=== PATIENT | male | born 1975 | race Hispanic/Latino ===

== ENCOUNTER 2024-04-03 20:05 | Inpatient (IN) | payer SELFPAY ==
[~2024-04-03] VITALS: Ht 165.1 cm; Wt 105.9 kg
--- NOTE | 2024-04-03 21:20 | ERN ---
ED Note History of Present Illness Stated Complaint: LOWER PELVIC PAIN Chief Complaint: Abdominal Pain Time Seen by MD: 20:13 Time Seen by Midlevel: 20:13 Dictation: The patient is a 48-year-old male with no past medical history who presents to the emergency department with complaints of right side abdominal pain onset a week ago. Patient denies any fevers, nausea vomiting or diarrhea, constipation. Reports normal bowel movements. Patient is concerned with abdominal distention. Allergies: Coded Allergies: No Known Drug Allergies (Unverified Allergy, Unknown, 04/03/24) Past Medical History RN Note Reviewed/Agreed w/PFSH: Yes Review of System Dictation Constitutional: Negative for fever,chills, and weight loss Eyes: Negative for injury, pain,redness, and discharge ENT: Negative for injury,pain or swelling Cardiovascular: Negative for chest pain, palpitations, and edema Respiratory: Negative for shortness of breath, cough, and wheezing, Abdomen/GI: Negative for nausea, vomiting, diarrhea, and constipation positive for abdominal pain, Back: Negative for injury and pain : Negative for injury, bleeding and discharge MS/Extremity: Negative for injury and deformity Skin: Negative for rash, and discoloration Neuro: Negative for headache, weakness, numbness, tingling, and seizure Psych: Negative for suicide ideation, homicidal ideation, and hallucinations Initial Vital Sign VS Vital Signs Date Time Temp Pulse Resp B/P (MAP) Pulse Ox O2 Delivery O2 Flow Rate FiO2 04/03/24 21:19 98.4 85 18 130/88 98 0 04/03/24 22:35 Room Air* 21 Physical Exam Dictation Vital Signs reviewed General Appearance: Alert, oriented x 3, no acute distress, well developed, nourished. Head and Face: non-traumatic. Eyes: PERRL, pink conjunctivas, eyelid no trauma, anterior chamber with arcus senilis. Ears: Pinnas intact and no signs of trauma or erythema ear canals clear and no discharge TM no erythema Nose: No discharge, no bleeding. Oropharynx: Mouth normal, tongue pink. pharynx clear,no erythema, tonsils no exudates, no abscesses noted, mucous membrane moist Neck: Supple, non-tender, no thyromegaly, no masses, no JVD, no bruits Breast:Deferred Chest:No tenderness, no crepitus, no paradoxical movement, no retractions Lungs:Clear, well-ventilated, symmetric, no rales, no wheezing, no rhonchi, no stridor, good breath sounds bilaterally Heart: Regular rate, regular rhythm, no murmur, no gallops Vascular: no peripheral edema, Abdomen: Soft, positive bowel sounds, nondistended, no guarding, right lower abd tender, no rebound, no masses no hepatomegaly, no splenomegaly, no Azevedo's sign, no hernias. Rectal: Deferred Genital: Deferred Neurological: Normal speech, motor function intact, sensory function intact Musculoskeletal: Neck nontender, full range of motion, back nontender, full range of motion, Extremities: nontender, full range of motion Skin: Color pink, dry, no turgor, no rash, no lacerations, no abrasions, no contusions. Lymphatic: Deferred Results (Laboratory/Radiology) Laboratory/Radiology Laboratory Tests Test 04/03/24 21:52 04/03/24 21:53 Urine Color YELLOW (YELLOW) Urine Appearance CLEAR (CLEAR) Urine pH 6.0 (5.0-8.0) Urine Specific [place] 1.019 (1.001-1.031) Urine Protein 20 mg/dL (NEGATIVE) H Urine Glucose (UA) NEGATIVE mg/dL (NEGATIVE) Urine Ketones NEGATIVE mg/dL (NEGATIVE) Urine Occult Blood NEGATIVE (NEGATIVE) Urine Nitrate NEGATIVE (NEGATIVE) Urine Bilirubin NEGATIVE mg/dL (NEGATIVE) Urine Urobilinogen 0.2 mg/dL (0.2-1.0) Urine Leukocyte Esterase NEGATIVE Diony/uL Urine RBC 0-1 /HPF (0-1) Urine WBC 2-5 /HPF (0-1) H Urine Bacteria None /HPF (None Seen) Urine Opiates Screen NEGATIVE (NEGATIVE) Urine Barbiturates Screen NEGATIVE (NEGATIVE) Urine Phencyclidine Screen NEGATIVE (NEGATIVE) Urine Amphetamines Screen NEGATIVE (NEGATIVE) Urine Benzodiazepines Screen NEGATIVE (NEGATIVE) Urine Cocaine Screen NEGATIVE (NEGATIVE) Urine Marijuana (THC) Screen NEGATIVE (NEGATIVE) White Blood Count 14.4 K/uL (4.8-10.8) H Red Blood Count 4.65 MIL/uL (4.50-6.20) Hemoglobin 14.6 g/dL (14.0-18.0) Hematocrit 42.3 % (42-54) Mean Corpuscular Volume 91.0 fL (79-99) Mean Corpuscular Hemoglobin 31.4 pg (27.0-33.0) Mean Corpuscular Hemoglobin Concent 34.5 g/dL (32.0-36.0) Red Cell Distribution Width 12.2 % (11.0-15.5) Platelet Count 333 K/uL (130-400) Mean Platelet Volume 9.4 fL (7.5-10.5) Immature Granulocyte % (Auto) 0.4 % (0-1) Neutrophils (%) (Auto) 71.1 % (40.0-77.0) Lymphocytes (%) (Auto) 19.2 % (21.0-51.0) L Monocytes (%) (Auto) 7.7 % (3.0-13.0) Eosinophils (%) (Auto) 1.3 % (0.0-8.0) Basophils (%) (Auto) 0.3 % (0.0-5.0) Neutrophils # (Auto) 10.2 K/uL (1.8-7.7) H Lymphocytes # (Auto) 2.8 K/uL (1.0-4.8) Monocytes # (Auto) 1.1 K/uL (0.1-1.0) H Eosinophils # (Auto) 0.19 K/uL (0.00-0.70) Basophils # (Auto) 0.04 K/uL (0.00-0.20) Absolute Immature Granulocyte (auto 0.06 K/uL (0-1) Nucleated Red Blood Cells 0.0 % (0.0-0.19) Sodium Level 136 mmol/L (136-145) Potassium Level 4.2 mmol/L (3.5-5.1) Chloride Level 100 mmol/L (101-111) L Carbon Dioxide Level 31 mmol/L (21-32) Blood Urea Nitrogen 11 mg/dL (7-18) Creatinine 1.2 mg/dL (0.5-1.3) Glomerular Filtration Rate Calc 74 mL/min (>90) Random Glucose 100 mg/dL (70-105) Total Calcium 8.9 mg/dL (8.5-10.1) Total Bilirubin 0.9 mg/dL (0.2-1.0) Direct Bilirubin 0.3 mg/dL (0.0-0.3) Aspartate Amino Transf (AST/SGOT) 25 U/L (10-37) Alanine Aminotransferase (ALT/SGPT) 60 U/L (12-78) Alkaline Phosphatase 158 U/L (50-136) H Total Creatine Kinase 99 U/L (21-232) Troponin I High Sensitivity < 4 ng/L (4-75) L Total Protein 8.1 g/dL (6.0-8.3) Albumin 3.4 g/dL (3.5-5.0) L Lipase 45 U/L (16-77) REASON: right Abdominal Pain ORDERING PHYSICIAN: KHUSHI QUACH PROCEDURE: ABD PEL W - CT ABDOMEN/PELVIS W/CONTRAST CT ABDOMEN/PELVIS W/CONTRAST HISTORY: Right abdominal pain COMPARISON: None TECHNIQUE: Multiple sequential axial images of the abdomen and pelvis were obtained from the dome of the diaphragm through symphysis pubis. Patient was not given contrast through intravenous route. Oral contrast was not given. FINDINGS: No pleural effusion is seen bilaterally. There is no evidence of parenchymal disease or pulmonary nodule of the visualized lower lungs. Degenerative changes of the thoracolumbar spine are present. The heart is not enlarged. The liver is borderline enlarged measuring 16 cm. There is right posterior renal cyst measuring 4.4 cm. The liver, spleen, adrenal glands and pancreas are unremarkable. There is no evidence of hydronephrosis bilaterally. No evidence of renal stone is seen. Fecal material is seen in the colon. There are normal size retroperitoneal and mesenteric lymph nodes. No ascites is seen. There is right lower abdominal mesenteric fat stranding. There is complex cystic structure measuring 4.1 cm in the right lower abdomen. Findings may be related to acute appendicitis with abscess. Appendix is dilated measuring 12 mm. Pelvic sidewalls are symmetric bilaterally. Bladder is moderately distended without wall thickening. IMPRESSION: 1. There is right lower abdominal mesenteric fat stranding. There is complex cystic structure measuring 4.1 cm in the right lower abdomen. Findings may be related to acute appendicitis with abscess. Appendix is dilated measuring [address] was performed with one or more following dose reduction techniques: automated exposure control, adjustment of the mA and kv according to patient's size, or use of a iterative reconstruction technique. Labs Reviewed?: Yes ED Course ED Course Orders Procedure Category Date Status Time Cbc With Differential LAB 04/03/24 Complete 20:20 Urinalysis Profile LAB 04/03/24 Complete 20:20 0.9%Nacl 1000ml (Ns PHA 04/03/24 Complete 1000ml) 20:30 Lipase LAB 04/03/24 Complete 20:20 Basic Metabolic Panel LAB 04/03/24 Complete 20:20 Hepatic Function Panel LAB 04/03/24 Complete 20:20 Ketorolac PHA 04/03/24 Complete Tromethamine 30mg/Ml 20:30 Troponin I High LAB 04/03/24 Complete Sensitivity 20:20 12 Lead Ekg Tracing- EKG 04/03/24 Logged Technical 20:20 Creatine Kinase, Total LAB 04/03/24 Complete 20:20 Drug Screen Urine LAB 04/03/24 Complete 22:39 Ct Abdomen/Pelvis CT 04/03/24 Resulted W/Contrast 22:39 Iohexol (Omnipaque) PHA 04/03/24 Complete 22:59 Zosyn 3.375gm+Ns 50ml PHA 04/04/24 Complete (Zosyn 3.375gm+Ns 00:00 Nothing By Mouth DIET 04/04/24 Transmitted Breakfast Current Medications Medications (Trade) Dose Ordered Sig/Maynor Route PRN Reason Start Time Stop Time Status Last Admin Dose Admin Iohexol (Omnipaque) 75 ml STK-MED ONCE IV 04/03/24 22:59 04/03/24 22:59 DC Ketorolac Tromethamine (toRADol) 30 mg ONCE ONCE IVP 04/03/24 20:30 04/03/24 20:31 DC 04/03/24 23:20 Piperacillin Sod/ Tazobactam Sod (Zosyn 3.375gm+NS 50ml) 3.375 gm ONCE ONCE IV 04/04/24 00:00 04/04/24 00:02 DC 04/04/24 00:09 Sodium Chloride 1,000 ml @ 0 mls/hr ONCE ONCE IV 04/03/24 20:30 04/03/24 20:31 DC 04/03/24 23:20 Vital Signs Date Time Temp Pulse Resp B/P (MAP) Pulse Ox O2 Delivery O2 Flow Rate FiO2 04/03/24 22:35 98.4 85 18 130/85 98 Room Air* 0 21 04/03/24 21:19 98.4 85 18 130/88 98 0 Medical Decision Making MDM MDM: The patient is a 48-year-old male with no past medical history who presents to the emergency department with complaints of right side abdominal pain onset a week ago. Patient denies any fevers, nausea vomiting or diarrhea, constipation. Reports normal bowel movements. Patient is concerned with abdominal distention. CBC showed leukocytosis, no anemia, chemistry showed hypochloremia, normal renal function, negative troponin, negative lipase, urinalysis unremarkable. CT showed right lower abdominal mesenteric fat stranding. Cystic structure measuring 4.1 cm in the right lower abdomen which may relate to appendicitis with the abscess. The appendix is dilated at 12 mm. Spoke to general surgery who states to admit patient, start antibiotics, npo and she will consult tomorrow. Differential diagnosis: UTI, appendicitis, bowel obstruction, electrolyte imbalance Comorbidities: None Tests considered and not ordered secondary to shared decision making include: none Previous outside records reviewed: none Risk of complication and/or morbidity or mortality of patient management: The patient meets criteria for admission. Need for emergency major/minor surgery: No There are no social concerns with this patient. I independently interpreted the tests I ordered (labs, urinalysis, etc.). I discussed the case with the hospitalist for admission. Angelina who accepts admission I discussed the case with the following specialists: Historian: pateint. I independently interpreted imaging studies and EKGs that I ordered (US, CT, XR, EKG, etc.). External chart review: none. Medical management and examination interpretation discussions were had by me with other qualified healthcare professionals as indicated for the patient's care. DX & DISP Disposition: Inpatient Decision to Admit Date: Apr 04, 2024 Decision to Admit Time: 00:37 Departure Impression: Primary Impression: Acute appendicitis Additional Impressions: Appendix abscess, Leukocytosis, Abdominal pain Condition: Stable Referrals: NONE (PCP) I have reviewed the case, and I agree with, Diagnosis and Plan KHUSHI QUACH Apr 03, 2024 21:20
[2024-04-03 22:02] LABS: APPEARANCE,URINE CLEAR (CLEAR); BILIRUBIN,URINE NEGATIVE (NEGATIVE); COLOR,URINE YELLOW (YELLOW); GLUCOSE, URINE (UA) NEGATIVE (NEGATIVE); KETONES,URINE NEGATIVE (NEGATIVE); LEUKOCYTE ESTERASE ,URINE NEGATIVE Leu/uL (NEGATIVE); NITRATE,URINE NEGATIVE (NEGATIVE); OCCULT BLOOD,URINE NEGATIVE (NEGATIVE); PROTEIN,URINE 20 mg/dL (NEGATIVE); UROBILINOGEN,URINE 0.2 mg/dL (0.2-1.0)
[2024-04-03 22:04] LABS: ADD UA MICROSCOPIC YES
[2024-04-03 22:05] LABS: MUCUS,URINE RARE LPF (None Seen); RBC,URINE 0-1 /HPF (0-1)
[2024-04-03 22:18] LABS: BASOPHILS # (AUTO) 0.04 K/uL (0.00-0.20); BASOPHILS % (AUTO) 0.3 % (0.0-5.0); EOSINOPHILS # (AUTO) 0.19 K/uL (0.00-0.70); EOSINOPHILS % (AUTO) 1.3 % (0.0-8.0); HEMATOCRIT 42.3 % (42-54); IMMATURE GRANULOCYTE ABSOLUTE 0.06 K/uL (0-1); LYMPHOCYTES # (AUTO) 2.8 K/uL (1.0-4.8); LYMPHOCYTES % (AUTO) 19.2 % (21.0-51.0); MEAN CORPUSCULAR HEMOGLOBIN 31.4 pg (27.0-33.0); MEAN CORPUSCULAR HGB CONC 34.5 g/dL (32.0-36.0); MONOCYTES # (AUTO) 1.1 K/uL (0.1-1.0); MONOCYTES % (AUTO) 7.7 % (3.0-13.0); NEUTROPHILS # (AUTO) 10.2 K/uL (1.8-7.7); NEUTROPHILS % (AUTO) 71.1 % (40.0-77.0); PLATELET COUNT (AUTO) 333 K/uL (130-400); RED BLOOD CELL COUNT(AUTO) 4.65 MIL/uL (4.50-6.20); RED CELL DISTRIBUTION WIDTH 12.2 % (11.0-15.5); WHITE BLOOD COUNT (AUTO) 14.4 K/uL (4.8-10.8)
[2024-04-03 22:32] LABS: CREATININE 1.2 mg/dL (0.5-1.3); POTASSIUM 4.2 mmol/L (3.5-5.1)
[2024-04-03 22:36] LABS: ALBUMIN 3.4 g/dL (3.5-5.0); BILIRUBIN,DIRECT 0.3 mg/dL (0.0-0.3); BILIRUBIN,TOTAL 0.9 mg/dL (0.2-1.0); TOTAL PROTEIN, SERUM 8.1 g/dL (6.0-8.3)
[2024-04-03] MEDS ORDERED: IOHEXOL-350 75 ML VIAL IV ONE (22:59)
[2024-04-03 23:07] LABS: AMPHET/METH SCREEN,URINE NEGATIVE (NEGATIVE); BARBITURATE SCREEN, URINE NEGATIVE (NEGATIVE); BENZODIAZEPINES SCREEN,URINE NEGATIVE (NEGATIVE); CANNABINOID SCREEN,URINE NEGATIVE (NEGATIVE); COCAINE SCREEN,URINE NEGATIVE (NEGATIVE); OPIATE SCREEN,URINE NEGATIVE (NEGATIVE); PHENCYCLIDINE SCREEN,URINE NEGATIVE (NEGATIVE)
[2024-04-03] MEDS: 0.9%NACL 1000ML 1,000 ML IV ONE (23:20)
[2024-04-03] MEDS: ketOROlac 30MG VIAL (30MG/ML) IVP ONE (23:20)
--- NOTE | 2024-04-03 23:24 | HMCIMG ---
CT ABDOMEN/PELVIS W/CONTRAST HISTORY: Right abdominal pain COMPARISON: None TECHNIQUE: Multiple sequential axial images of the abdomen and pelvis were obtained from the dome of the diaphragm through symphysis pubis. Patient was not given contrast through intravenous route. Oral contrast was not given. FINDINGS: No pleural effusion is seen bilaterally. There is no evidence of parenchymal disease or pulmonary nodule of the visualized lower lungs. Degenerative changes of the thoracolumbar spine are present. The heart is not enlarged. The liver is borderline enlarged measuring 16 cm. There is right posterior renal cyst measuring 4.4 cm. The liver, spleen, adrenal glands and pancreas are unremarkable. There is no evidence of hydronephrosis bilaterally. No evidence of renal stone is seen. Fecal material is seen in the colon. There are normal size retroperitoneal and mesenteric lymph nodes. No ascites is seen. There is right lower abdominal mesenteric fat stranding. There is complex cystic structure measuring 4.1 cm in the right lower abdomen. Findings may be related to acute appendicitis with abscess. Appendix is dilated measuring 12 mm. Pelvic sidewalls are symmetric bilaterally. Bladder is moderately distended without wall thickening. IMPRESSION: 1. There is right lower abdominal mesenteric fat stranding. There is complex cystic structure measuring 4.1 cm in the right lower abdomen. Findings may be related to acute appendicitis with abscess. Appendix is dilated measuring [address] was performed with one or more following dose reduction techniques: automated exposure control, adjustment of the mA and kv according to patient's size, or use of a iterative reconstruction technique.
[2024-04-04] VITALS (8 sets, daily range): BP systolic 98–146; BP diastolic 53–92; PULSE 89–107; RESP 16–20; TEMP 97.9–100; O2SAT 98–99
[2024-04-04] MEDS: ZOSYN 3.375GM +NS 50ML IV ONE (00:09)
[2024-04-04] MEDS ORDERED: PoTASSium chloRIDE 20MEQ/100ML 100 ML IV PRN (03:30)
[2024-04-04] MEDS ORDERED: MAGNESIUM 2GM PREMIX 50ML 50 ML IV PRN (03:30)
[2024-04-04] MEDS: 0.9%NACL 1000ML 1,000 ML IV SCH (04:19)
[2024-04-04] MEDS: morPHINE 2 MG SYG IV PRN (04:47)
[2024-04-04] MEDS: ondanSETRON 4MG INJ IV PRN (04:47)
[2024-04-04 05:56] LABS: BASOPHILS # (AUTO) 0.03 K/uL (0.00-0.20); BASOPHILS % (AUTO) 0.2 % (0.0-5.0); EOSINOPHILS # (AUTO) 0.19 K/uL (0.00-0.70); EOSINOPHILS % (AUTO) 1.5 % (0.0-8.0); HEMATOCRIT 38.1 % (42-54); LYMPHOCYTES # (AUTO) 1.7 K/uL (1.0-4.8); LYMPHOCYTES % (AUTO) 13.3 % (21.0-51.0); MEAN CORPUSCULAR HEMOGLOBIN 31.4 pg (27.0-33.0); MEAN CORPUSCULAR HGB CONC 34.1 g/dL (32.0-36.0); MONOCYTES % (AUTO) 7.7 % (3.0-13.0); NEUTROPHILS # (AUTO) 9.7 K/uL (1.8-7.7); NEUTROPHILS % (AUTO) 76.5 % (40.0-77.0); PLATELET COUNT (AUTO) 304 K/uL (130-400); RED BLOOD CELL COUNT(AUTO) 4.14 MIL/uL (4.50-6.20); RED CELL DISTRIBUTION WIDTH 12.3 % (11.0-15.5); WHITE BLOOD COUNT (AUTO) 12.7 K/uL (4.8-10.8)
[2024-04-04 06:06] LABS: INR 0.94 (0.85-1.15); PROTHROMBIN TIME 10.6 SEC (9.6-11.6)
[2024-04-04 06:08] LABS: PARTIAL THROMBOPLASTIN TIME 29.1 SEC (26.3-35.5)
[2024-04-04 06:23] LABS: ALBUMIN 2.8 g/dL (3.5-5.0); BILIRUBIN,TOTAL 0.6 mg/dL (0.2-1.0); MAGNESIUM 2.4 mg/dL (1.80-2.40); POTASSIUM 4.2 mmol/L (3.5-5.1); TOTAL PROTEIN, SERUM 6.8 g/dL (6.0-8.3)
--- NOTE | 2024-04-04 06:42 | EKG ---
[facility] Test Date: 2024-04-03 Test Time: 21:31:11 Pat Name: JARRETT SQUIRES Department: [facility] Room: 401 1 Gender: M Equal Opportunity Representative: [id number] : 1975 Requested By: KHUSHI QUACH Order Number: [id number] Reading MD: Daniel Luna Measurements Intervals [place] Rate: 86 P: -7 NV: 135 QRS: -21 QRSD: 96 T: -28 QT: 354 QTc: 423 Interpretive Statements Sinus rhythm No previous ECG available for comparison Electronically Signed On 04-04-2024 14:58:46 CUSTOMER ASSISTANT by Daniel Luna Please click the below link to view image of tracing.
--- NOTE | 2024-04-04 07:17 | HP ---
[facility] Date of Service: Apr 04, 2024 Time of Service: 06:59 PCP: Self-referral HISTORY OF PRESENT ILLNESS: This is a 48-year-old male denies any medical and surgical history who presents to the ED complaints of on and off nonradiating right lower quadrant pain which started one week ago. Patient states he also noticed having abdominal distention the pain intensity has been increasing and getting worse today so he decided to come to the ED for evaluation. Patient reports normal bowel movement today. Seen and examined patient in the ER awake alert and oriented, appears uncomfortable complaining of abdominal pain 8/10 pain level. Patient denies fever, chills, nausea, vomiting and diarrhea. Latest vital signs temperature 99, heart rate 89, blood pressure 146/92 saturation 99% on room air. Labs WBC 14.4, hemoglobin 14.6, hematocrit 42.3, platelet count 333. Chloride 100 alkaline phosphatase 158 troponin less than four albumin 3.4 the rest of the chemistry result are normal. Urine toxicology negative. CT abdomen and pelvis with contrast result revealed there is right lower abdominal mesenteric fat stranding. There is complex cystic structure measuring 4.1 cm in the right lower abdomen. Findings may be related to acute appendicitis with abscess. Appendix is dilated measuring 12 mm. While in the ER patient received 1 L NS bolus, Toradol 30 mg IV and Zosyn IV. As per ER mid level general surgeon Dr. Encinas he will was consulted agreed to evaluate patient. We will admit patient for further medical management. REVIEW OF SYSTEMS CONSTITUTIONAL: Denies fevers, chills, or night sweats. No unintentional weight loss reported. NEUROLOGICAL: Denies headache, amaurosis fugax, motor weakness, sensory deficit, vertigo/spinning sensation, gait abnormalities, or tremors. ENT: No hearing loss, otalgia, otorrhea, rhinitis, rhinorrhea, hoarseness, or sore throat. CARDIOVASCULAR: Denies any exertional angina, dyspnea on exertion, orthopnea, paroxysmal nocturnal dyspnea, palpitations, life-threatening arrhythmias, claudication. PULMONARY: Denies any shortness of breath, cough, phlegm/sputum, hemoptysis, pleuritic chest pain. SLEEP: Denies morning headaches, daytime somnolence or napping. Denies difficulty falling asleep, staying asleep, waking from sleep. Denies knowledge of snoring. GASTROINTESTINAL: Positive right lower quadrant abdominal pain Denies any type of dysphagia to either liquids or solids. Denies nausea, vomiting, pyrosis, early satiety, diarrhea, constipation, or changes in stool consistency or caliber. Denies coffee-ground emesis, hematemesis, hematochezia, or melanotic stools. GENITOURINARY: Denies frequency, urgency, nocturia, hematuria or incontinence (Storage/Irritative symptoms.) Low urinary stream, straining to void, urinary intermittency or hesitancy, splitting of the voiding stream, terminal dribbling. ENDOCRINOLOGIC: Denies polyuria, polydipsia, polyphagia or heat/cold intolerances. HEMATOLOGIC: Denies thrombophilia/previous clots, or coagulopathy/bleeding disorders. ONCOLOGIC: Denies personal history of malignancy. DERMATOLOGIC: Denies rashes or pruritus. PSYCHIATRIC: Denies any suicidal or homicidal ideation. Denies hallucinations. PAST MEDICAL HISTORY: [Patient denies ] PAST SURGICAL HISTORY: [ Patient denies ] PAST SOCIAL HISTORY: [ Patient lives with . Patient denies alcohol tobacco and recreational drug use ] FAMILY HISTORY: [Diabetes ] Coded Allergies: No Known Drug Allergies (Unverified Allergy, Unknown, 04/03/24) PHYSICAL EXAM GENERAL APPEARANCE: The patient is awake, alert, and oriented, in no acute cardiopulmonary distress. NEUROLOGICAL: Cranial nerves II-XII grossly intact. Motor is 5/5 in bilateral upper and lower extremities proximal to distal. No sensory deficits. HEENT: Face is symmetric. Pupils are equal and reactive. Extraocular movements are intact. NECK: Supple. No JVD. No thyromegaly. No submental, submandibular, pre- /postauricular, occipital or supraclavicular lymphadenopathy. CHEST: Normal chest expansion. No Telemetry. LUNGS: Absence of any rales, rhonchi or any wheezing. CARDIOVASCULAR: Regular. S1 and S2 normal. No appreciable rubs, murmurs or g allops. ABDOMEN: Abdominal distention and right lower quadrant abdominal tenderness on light palpation .There is no rebound, voluntary guarding, or rigidity. : Deferred. No Krishna. EXTREMITIES: Non-edematous and not cyanotic. No clubbing. Good capillary refill. SKIN: No skin breakdown. Vital Sign (Last 24 Hours) 04/04/24 04:30 Temp 99.0 Pulse 89 Resp 20 B/P (MAP) 146/92 Pulse Ox 99 O2 Delivery Room Air* O2 Flow Rate 0 FiO2 21 LABS: Laboratory: Test 04/04/24 05:24 04/03/24 21:53 04/03/24 21:52 Range/Units White Blood Count 12.7 H 4.8-10.8 K/uL Red Blood Count 4.14 L 4.50-6.20 MIL/uL Hemoglobin 13.0 L 14.0-18.0 g/dL Hematocrit 38.1 L 42-54 % Mean Corpuscular Volume 92.0 79-99 fL Mean Corpuscular Hemoglobin 31.4 27.0-33.0 pg Mean Corpuscular Hemoglobin Concent 34.1 32.0-36.0 g/dL Red Cell Distribution Width 12.3 11.0-15.5 % Platelet Count 304 130-400 K/uL Mean Platelet Volume 9.4 7.5-10.5 fL Immature Granulocyte % (Auto) 0.8 0-1 % Neutrophils (%) (Auto) 76.5 40.0-77.0 % Lymphocytes (%) (Auto) 13.3 L 21.0-51.0 % Monocytes (%) (Auto) 7.7 3.0-13.0 % Eosinophils (%) (Auto) 1.5 0.0-8.0 % Basophils (%) (Auto) 0.2 0.0-5.0 % Neutrophils # (Auto) 9.7 H 1.8-7.7 K/uL Lymphocytes # (Auto) 1.7 1.0-4.8 K/uL Monocytes # (Auto) 1.0 0.1-1.0 K/uL Eosinophils # (Auto) 0.19 0.00-0.70 K/uL Basophils # (Auto) 0.03 0.00-0.20 K/uL Absolute Immature Granulocyte (auto 0.10 0-1 K/uL Nucleated Red Blood Cells 0.0 0.0-0.19 % Prothrombin Time 10.6 9.6-11.6 SEC Prothromb Time International Ratio 0.94 0.85-1.15 Activated Partial Thromboplast Time 29.1 26.3-35.5 SEC Sodium Level 138 136-145 mmol/L Potassium Level 4.2 3.5-5.1 mmol/L Chloride Level 104 101-111 mmol/L Carbon Dioxide Level 28 21-32 mmol/L Blood Urea Nitrogen 9 7-18 mg/dL Creatinine 1.0 0.5-1.3 mg/dL Glomerular Filtration Rate Calc 92 >90 mL/min Random Glucose 113 H 70-105 mg/dL Total Calcium 8.4 L 8.5-10.1 mg/dL Magnesium Level 2.40 1.80-2.40 mg/dL Total Bilirubin 0.6 # 0.2-1.0 mg/dL Aspartate Amino Transf (AST/SGOT) 21 10-37 U/L Alanine Aminotransferase (ALT/SGPT) 46 # 12-78 U/L Alkaline Phosphatase 135 50-136 U/L Total Protein 6.8 6.0-8.3 g/dL Albumin 2.8 L 3.5-5.0 g/dL Procalcitonin 0.08 0.05-0.5 ng/mL Direct Bilirubin 0.3 0.0-0.3 mg/dL Total Creatine Kinase 99 21-232 U/L Troponin I High Sensitivity < 4 L 4-75 ng/L Lipase 45 16-77 U/L Urine Color YELLOW YELLOW Urine Appearance CLEAR CLEAR Urine pH 6.0 5.0-8.0 Urine Specific [place] 1.019 1.001-1.031 Urine Protein 20 H NEGATIVE mg/dL Urine Glucose (UA) NEGATIVE NEGATIVE mg/dL Urine Ketones NEGATIVE NEGATIVE mg/dL Urine Occult Blood NEGATIVE NEGATIVE Urine Nitrate NEGATIVE NEGATIVE Urine Bilirubin NEGATIVE NEGATIVE mg/dL Urine Urobilinogen 0.2 0.2-1.0 mg/dL Urine Leukocyte Esterase NEGATIVE NEGATIVE Diony/uL Urine RBC 0-1 0-1 /HPF Urine WBC 2-5 H 0-1 /HPF Urine Bacteria None None Seen /HPF Urine Opiates Screen NEGATIVE NEGATIVE Urine Barbiturates Screen NEGATIVE NEGATIVE Urine Phencyclidine Screen NEGATIVE NEGATIVE Urine Amphetamines Screen NEGATIVE NEGATIVE Urine Benzodiazepines Screen NEGATIVE NEGATIVE Urine Cocaine Screen NEGATIVE NEGATIVE Urine Marijuana (THC) Screen NEGATIVE NEGATIVE Current Medications Medications (Trade) Dose Ordered Sig/Maynor Route PRN Reason Start Time Stop Time Status Last Admin Dose Admin Magnesium Sulfate 50 ml @ 0 mls/hr PROTOCOL PRN IV OTHER [SEE ORDER COMMENTS] 04/04/24 03:30 05/04/24 03:29 Morphine Sulfate (morPHINE 2MG SYG) 2 mg Q4H PRN IV MODERATE PAIN (4-6) 04/04/24 03:30 04/11/24 03:29 04/04/24 04:47 2 MG Ondansetron HCl (zoFRAN 4MG INJ) 4 mg Q6H PRN IV NAUSEA/VOMITING 04/04/24 03:30 05/04/24 03:29 04/04/24 04:47 4 MG Piperacillin Sod/ Tazobactam Sod (Zosyn 3.375gm+NS 50ml) 3.375 gm Q8H IV 04/04/24 08:00 04/14/24 07:59 Potassium Chloride 100 ml @ 50 mls/hr AD PRN IV POTASSIUM PROTOCOL 04/04/24 03:30 05/04/24 03:29 Sodium Chloride 1,000 ml @ 100 mls/hr Q10H IV 04/04/24 03:30 05/04/24 03:29 04/04/24 04:19 100 MLS/HR DIAGNOSTICS / RADIOLOGY: [ ] ASSESSMENT: Acute appendicitis with abscess per CT POA Acute leukocytosis POA Moderate protein calorie malnutrition POA Morbid obesity POA PLAN: We will admit patient in medical surgical floor We will keep patient nothing by mouth We will start NS @ 100 ml / hr and re evaluate We will continue Zosyn IV Q 8 hours for empiric coverage We will start on Famotidine 20 mg IV bid for GI prophylaxis We will replace electrolytes as needed per protocol We will add prn medication for fever,pain, nausea and vomiting We will seek general surgery consultation We will request labs in am Further orders to follow depending on above results Case discussed with attending physician and came up with above treatment and plan of care. ADVANCED CARE PLANNING 1. Which of the following were discussed? Hospice Care - No Therapeutic options - Yes Advance Directives - No Other discussions - 2. Discussed with who? Patient and 3. Voluntary nature of this service was explained to the patient? Yes 4. Amount of time spent -19 min 5. Reviewed by Physician? (if this service was performed by NPP) Yes Patient seen and examined by me. Agree with note by SENIOR PACKAGING ENGINEER SEE ADDITIONAL ORDERS PER CHART DISCUSSED WITH NURSING STAFF SEGUNDO BALDWIN CENTRAL SUPPLY TECHNICIAN Apr 04, 2024 07:17
[2024-04-04 07:27] LABS: ERYTHROCYTE SEDIMENTATION RATE 70 MM/HR (0-15)
[2024-04-04] MEDS: FAMOTIDINE 20MG VIAL IV SCH (08:21)
[2024-04-04] MEDS: ZOSYN 3.375GM +NS 50ML IV SCH (08:21)
--- NOTE | 2024-04-04 12:47 | PN ---
[facility] PROGRESS NOTE Date of Service: Apr 04, 2024 Time of Service: 12:46 SUBJECTIVE: 04/04 patient is seen and examined at bedside, case discussed with the RN, no acute events overnight, patient currently NPO, getting IV antibiotics during my visit, getting good pain control with current medical management. Results of CT of the abdomen reviewed, findings of acute appendicitis with abscess. Surgical consultation and Infectious Disease consultation requested, we will follow input recommendation. REVIEW OF SYSTEMS CONSTITUTIONAL: Denies fevers, chills, or night sweats. No unintentional weight loss reported. NEUROLOGICAL: Denies headache, amaurosis fugax, motor weakness, sensory deficit, vertigo/spinning sensation, gait abnormalities, or tremors. ENT: No hearing loss, otalgia, otorrhea, rhinitis, rhinorrhea, hoarseness, or sore throat. CARDIOVASCULAR: Denies any exertional angina, dyspnea on exertion, orthopnea, paroxysmal nocturnal dyspnea, palpitations, life-threatening arrhythmias, claudication. PULMONARY: Denies any shortness of breath, cough, phlegm/sputum, hemoptysis, pleuritic chest pain. SLEEP: Denies morning headaches, daytime somnolence or napping. Denies difficulty falling asleep, staying asleep, waking from sleep. Denies knowledge of snoring. GASTROINTESTINAL: Positive right lower quadrant abdominal pain Denies any type of dysphagia to either liquids or solids. Denies nausea, vomiting, pyrosis, early satiety, diarrhea, constipation, or changes in stool consistency or caliber. Denies coffee-ground emesis, hematemesis, hematochezia, or melanotic stools. GENITOURINARY: Denies frequency, urgency, nocturia, hematuria or incontinence (Storage/Irritative symptoms.) Low urinary stream, straining to void, urinary intermittency or hesitancy, splitting of the voiding stream, terminal dribbling. ENDOCRINOLOGIC: Denies polyuria, polydipsia, polyphagia or heat/cold intolerances. HEMATOLOGIC: Denies thrombophilia/previous clots, or coagulopathy/bleeding disorders. ONCOLOGIC: Denies personal history of malignancy. DERMATOLOGIC: Denies rashes or pruritus. PSYCHIATRIC: Denies any suicidal or homicidal ideation. Denies hallucinations. PHYSICAL EXAM GENERAL APPEARANCE: The patient is awake, alert, and oriented, in no acute cardiopulmonary distress. NEUROLOGICAL: Cranial nerves II-XII grossly intact. Motor is 5/5 in bilateral upper and lower extremities proximal to distal. No sensory deficits. HEENT: Face is symmetric. Pupils are equal and reactive. Extraocular movements are intact. NECK: Supple. No JVD. No thyromegaly. No submental, submandibular, pre- /postauricular, occipital or supraclavicular lymphadenopathy. CHEST: Normal chest expansion. No Telemetry. LUNGS: Absence of any rales, rhonchi or any wheezing. CARDIOVASCULAR: Regular. S1 and S2 normal. No appreciable rubs, murmurs or gallops. ABDOMEN: Abdominal distention and right lower quadrant abdominal tenderness on light palpation .There is no rebound, voluntary guarding, or rigidity. : Deferred. No Krishna. EXTREMITIES: Non-edematous and not cyanotic. No clubbing. Good capillary refill. SKIN: No skin breakdown. Vital Signs (last 8hr) Date Time Temp Pulse Resp B/P (MAP) Pulse Ox O2 Delivery O2 Flow Rate FiO2 04/04/24 11:28 99.9 95 18 134/80 99 Room Air 04/04/24 10:02 99 Room Air* 0 21 04/04/24 08:02 97.9 92 18 126/67 99 Room Air LABS: Laboratory: Test 04/04/24 05:24 04/03/24 21:53 04/03/24 21:52 Range/Units White Blood Count 12.7 H 4.8-10.8 K/uL Red Blood Count 4.14 L 4.50-6.20 MIL/uL Hemoglobin 13.0 L 14.0-18.0 g/dL Hematocrit 38.1 L 42-54 % Mean Corpuscular Volume 92.0 79-99 fL Mean Corpuscular Hemoglobin 31.4 27.0-33.0 pg Mean Corpuscular Hemoglobin Concent 34.1 32.0-36.0 g/dL Red Cell Distribution Width 12.3 11.0-15.5 % Platelet Count 304 130-400 K/uL Mean Platelet Volume 9.4 7.5-10.5 fL Immature Granulocyte % (Auto) 0.8 0-1 % Neutrophils (%) (Auto) 76.5 40.0-77.0 % Lymphocytes (%) (Auto) 13.3 L 21.0-51.0 % Monocytes (%) (Auto) 7.7 3.0-13.0 % Eosinophils (%) (Auto) 1.5 0.0-8.0 % Basophils (%) (Auto) 0.2 0.0-5.0 % Neutrophils # (Auto) 9.7 H 1.8-7.7 K/uL Lymphocytes # (Auto) 1.7 1.0-4.8 K/uL Monocytes # (Auto) 1.0 0.1-1.0 K/uL Eosinophils # (Auto) 0.19 0.00-0.70 K/uL Basophils # (Auto) 0.03 0.00-0.20 K/uL Absolute Immature Granulocyte (auto 0.10 0-1 K/uL Nucleated Red Blood Cells 0.0 0.0-0.19 % Erythrocyte Sedimentation Rate 70 H 0-15 MM/HR Prothrombin Time 10.6 9.6-11.6 SEC Prothromb Time International Ratio 0.94 0.85-1.15 Activated Partial Thromboplast Time 29.1 26.3-35.5 SEC Sodium Level 138 136-145 mmol/L Potassium Level 4.2 3.5-5.1 mmol/L Chloride Level 104 101-111 mmol/L Carbon Dioxide Level 28 21-32 mmol/L Blood Urea Nitrogen 9 7-18 mg/dL Creatinine 1.0 0.5-1.3 mg/dL Glomerular Filtration Rate Calc 92 >90 mL/min Random Glucose 113 H 70-105 mg/dL Total Calcium 8.4 L 8.5-10.1 mg/dL Magnesium Level 2.40 1.80-2.40 mg/dL Total Bilirubin 0.6 # 0.2-1.0 mg/dL Aspartate Amino Transf (AST/SGOT) 21 10-37 U/L Alanine Aminotransferase (ALT/SGPT) 46 # 12-78 U/L Alkaline Phosphatase 135 50-136 U/L Total Protein 6.8 6.0-8.3 g/dL Albumin 2.8 L 3.5-5.0 g/dL Procalcitonin 0.08 0.05-0.5 ng/mL Direct Bilirubin 0.3 0.0-0.3 mg/dL Total Creatine Kinase 99 21-232 U/L Troponin I High Sensitivity < 4 L 4-75 ng/L Lipase 45 16-77 U/L Urine Color YELLOW YELLOW Urine Appearance CLEAR CLEAR Urine pH 6.0 5.0-8.0 Urine Specific [place] 1.019 1.001-1.031 Urine Protein 20 H NEGATIVE mg/dL Urine Glucose (UA) NEGATIVE NEGATIVE mg/dL Urine Ketones NEGATIVE NEGATIVE mg/dL Urine Occult Blood NEGATIVE NEGATIVE Urine Nitrate NEGATIVE NEGATIVE Urine Bilirubin NEGATIVE NEGATIVE mg/dL Urine Urobilinogen 0.2 0.2-1.0 mg/dL Urine Leukocyte Esterase NEGATIVE NEGATIVE Diony/uL Urine RBC 0-1 0-1 /HPF Urine WBC 2-5 H 0-1 /HPF Urine Bacteria None None Seen /HPF Urine Opiates Screen NEGATIVE NEGATIVE Urine Barbiturates Screen NEGATIVE NEGATIVE Urine Phencyclidine Screen NEGATIVE NEGATIVE Urine Amphetamines Screen NEGATIVE NEGATIVE Urine Benzodiazepines Screen NEGATIVE NEGATIVE Urine Cocaine Screen NEGATIVE NEGATIVE Urine Marijuana (THC) Screen NEGATIVE NEGATIVE Current Medications Medications (Trade) Dose Ordered Sig/Maynor Route PRN Reason Start Time Stop Time Status Last Admin Dose Admin Famotidine (Pepcid 20mg Vial) 20 mg BID IV 04/04/24 09:00 05/04/24 08:59 04/04/24 08:21 20 MG Magnesium Sulfate 50 ml @ 0 mls/hr PROTOCOL PRN IV OTHER [SEE ORDER COMMENTS] 04/04/24 03:30 05/04/24 03:29 Morphine Sulfate (morPHINE 2MG SYG) 2 mg Q4H PRN IV MODERATE PAIN (4-6) 04/04/24 03:30 04/11/24 03:29 04/04/24 11:08 2 MG Ondansetron HCl (zoFRAN 4MG INJ) 4 mg Q6H PRN IV NAUSEA/VOMITING 04/04/24 03:30 05/04/24 03:29 04/04/24 04:47 4 MG Piperacillin Sod/ Tazobactam Sod (Zosyn 3.375gm+NS 50ml) 3.375 gm Q8H IV 04/04/24 08:00 04/14/24 07:59 04/04/24 08:21 3.375 GM Potassium Chloride 100 ml @ 50 mls/hr AD PRN IV POTASSIUM PROTOCOL 04/04/24 03:30 05/04/24 03:29 Sodium Chloride 1,000 ml @ 100 mls/hr Q10H IV 04/04/24 03:30 05/04/24 03:29 2/16/25 08:22 100 MLS/HR DIAGNOSTICS / RADIOLOGY: [ ] ASSESSMENT: Acute appendicitis with abscess per CT POA Acute leukocytosis POA Moderate protein calorie malnutrition POA Morbid obesity POA PLAN: Remains admitted to the medical floor Continue patient nothing by mouth Continue NS @ 100 ml / hr and re evaluate Continue Zosyn IV Q 8 hours for empiric coverage Continue on Famotidine 20 mg IV bid for GI prophylaxis We will replace electrolytes as needed per protocol We will add prn medication for fever,pain, nausea and vomiting Surgical consultation requested, follow input and recommendation Infectious disease consultation requested, follow input recommendation We will request labs in am Further orders to follow depending on above results Case discussed with patient, all questions answered, agreed and understood the information provided. FAHEEM GROSS MD Apr 04, 2024 12:47
--- NOTE | 2024-04-04 13:08 | NUR ---
DC PLAN VISITED WITH PATIENT. PATIENT LIVES WITH PARENTS. PATIENT HAS NO SERVICES OR DME. FEELS SAFE TO RETURN HOME. Addendum: 04/04/24 at 1310 by CARLOS ALBERTO ESPOSITO RN CM Amended: Links added.
--- NOTE | 2024-04-04 21:45 | NUR ---
ROUNDS PATIENT AWAKE AND ALERT. VOICES ALL NEEDS. AT BEDSIDE. POC DISCUSSED. ALL QUESTIONS ANSWERED BY . Addendum: 04/04/24 at 2242 by PEPITO HUITRON RN RN Amended: Links added.
--- NOTE | 2024-04-04 22:42 | CONS ---
GENERAL SURGERY CONSULTATION NOTE Date/Time Patient Seen: April 04, 2024 Reason for Consultation: Acute perforated appendicitis with abscess History of Present Illness: This is a 48-year-old male who presented to the ER with a one week history of right lower quadrant abdominal pain. He has had associated fevers and chills. Imaging studies in the ER included a CT scan that confirmed the diagnosis of acute appendicitis with a associated 4 cm abscess. Right now he says his abdominal pain is improving. And that he is feeling better. Past Medical History: None Past Surgical History: None Family History: Noncontributory Social History: [Never] smoker. [Occasional] alcohol consumption. [Denies] illicit drug use Current Medications Medications (Trade) Dose Ordered Sig/Maynor Route Start Time Stop Time Status Last Admin Dose Admin Famotidine (Pepcid 20mg Vial) 20 mg BID IV 04/04/24 09:00 05/04/24 08:59 04/04/24 21:42 20 MG Piperacillin Sod/ Tazobactam Sod (Zosyn 3.375gm+NS 50ml) 3.375 gm Q8H IV 04/04/24 08:00 04/14/24 07:59 04/04/24 17:21 3.375 GM Sodium Chloride 1,000 ml @ 100 mls/hr Q10H IV 04/04/24 03:30 05/04/24 03:29 04/04/24 08:22 100 MLS/HR Review of Systems: CONST: [Positive for fevers and chills.] EYES: [No recent vision problems.] ENT: [No congestion, ear pain, or sore throat.] C/V: [No chest pain, palpitations, or edema.] RESP: [No cough, congestion, wheezing or shortness of breath.] GI: [Positive for abdominal pain] : [No incontinence or dysuria.] SKIN: [No rash.] NEURO: [No headache, focal numbness or weakness, dizziness, or seizures.] PSYCH: [No depression or anxiety.] HEME: [No abnormal bruising or bleeding.] LYMPH: [No swollen glands.] Physical Examination: GENERAL: [No acute distress.] HEAD: [Normal with no signs of head trauma.] EYES: [PERRLA, EOMI, conjunctiva and sclera normal.] ENT: [Hearing grossly intact, normal oropharynx.] NECK: [Supple without JVD. There is no tenderness, lymphadenopathy, or masses. No thyromegaly. Normal carotid upstrokes without bruits.] LUNGS: [Clear breath sounds bilaterally. There are right basilar rales one third of the way up the chest. No wheezes, or rhonchi.] HEART: [Normal rate and rhythm. Normal S1 and S2 without mumurs, gallop or rub.] VASC: [Peripheral pulses +2 bilaterally.] ABD: [Bowel sounds normal, soft, right lower quadrant abdominal tenderness. No diffuse peritonitis noted] : [Not examined] LYMPH: [No lymphadenopathy noted.] EXT: [No clubbing, cyanosis or edema.] SKIN: [No rashes or lesions noted.] NEURO: [Awake, alert, and oriented x3. No focal sensory or strength deficits noted.] Vital Signs (last 8hr) Date Time Temp Pulse Resp B/P (MAP) Pulse Ox O2 Delivery O2 Flow Rate FiO2 04/04/24 21:41 98 Room Air* 0 21 04/04/24 19:52 100.0 98 17 121/63 98 Room Air 04/04/24 16:31 99.1 106 16 98/53 99 Room Air Laboratory: [ ] Hematology Labs: Test 04/04/24 05:24 Range/Units White Blood Count 12.7 H 4.8-10.8 K/uL Red Blood Count 4.14 L 4.50-6.20 MIL/uL Hemoglobin 13.0 L 14.0-18.0 g/dL Hematocrit 38.1 L 42-54 % Mean Corpuscular Volume 92.0 79-99 fL Mean Corpuscular Hemoglobin 31.4 27.0-33.0 pg Mean Corpuscular Hemoglobin Concent 34.1 32.0-36.0 g/dL Red Cell Distribution Width 12.3 11.0-15.5 % Platelet Count 304 130-400 K/uL Mean Platelet Volume 9.4 7.5-10.5 fL Immature Granulocyte % (Auto) 0.8 0-1 % Neutrophils (%) (Auto) 76.5 40.0-77.0 % Lymphocytes (%) (Auto) 13.3 L 21.0-51.0 % Monocytes (%) (Auto) 7.7 3.0-13.0 % Eosinophils (%) (Auto) 1.5 0.0-8.0 % Basophils (%) (Auto) 0.2 0.0-5.0 % Neutrophils # (Auto) 9.7 H 1.8-7.7 K/uL Lymphocytes # (Auto) 1.7 1.0-4.8 K/uL Monocytes # (Auto) 1.0 0.1-1.0 K/uL Eosinophils # (Auto) 0.19 0.00-0.70 K/uL Basophils # (Auto) 0.03 0.00-0.20 K/uL Absolute Immature Granulocyte (auto 0.10 0-1 K/uL Nucleated Red Blood Cells 0.0 0.0-0.19 % Erythrocyte Sedimentation Rate 70 H 0-15 MM/HR Chemistry Labs: Test 04/04/24 05:24 04/03/24 21:53 Range/Units Sodium Level 138 136-145 mmol/L Potassium Level 4.2 3.5-5.1 mmol/L Chloride Level 104 101-111 mmol/L Carbon Dioxide Level 28 21-32 mmol/L Blood Urea Nitrogen 9 7-18 mg/dL Creatinine 1.0 0.5-1.3 mg/dL Glomerular Filtration Rate Calc 92 >90 mL/min Random Glucose 113 H 70-105 mg/dL Total Calcium 8.4 L 8.5-10.1 mg/dL Magnesium Level 2.40 1.80-2.40 mg/dL Total Bilirubin 0.6 # 0.2-1.0 mg/dL Aspartate Amino Transf (AST/SGOT) 21 10-37 U/L Alanine Aminotransferase (ALT/SGPT) 46 # 12-78 U/L Alkaline Phosphatase 135 50-136 U/L Total Protein 6.8 6.0-8.3 g/dL Albumin 2.8 L 3.5-5.0 g/dL Procalcitonin 0.08 0.05-0.5 ng/mL Direct Bilirubin 0.3 0.0-0.3 mg/dL Total Creatine Kinase 99 21-232 U/L Troponin I High Sensitivity < 4 L 4-75 ng/L Lipase 45 16-77 U/L Coagulation Labs: Test 04/04/24 05:24 Range/Units Prothrombin Time 10.6 9.6-11.6 SEC Prothromb Time International Ratio 0.94 0.85-1.15 Activated Partial Thromboplast Time 29.1 26.3-35.5 SEC Diagnostics / Radiology: CT scan of the abdomen and pelvis showed acute appendicitis with an associated 4.1 cm abscess. Assessment: 48-year-old male with acute perforated appendicitis with associated abscess. Surgical intervention is not indicated at this time. Plan: Continue IV antibiotics Recommend IR guided drainage of this periappendiceal abscess. Patient can have clears after drainage and have his diet advanced as tolerated I discussed the long-term treatment with the patient which includes repeat CT scan of the abdomen and pelvis in one week to assess the abscess cavity after the drain is placed, an outpatient colonoscopy and possible interval appendectomy LORNE DE LEÓN MD Apr 04, 2024 22:42
[2024-04-05] VITALS (16 sets, daily range): BP systolic 114–139; BP diastolic 52–89; PULSE 83–101; RESP 16–19; TEMP 98.2–99.7; O2SAT 95–96
[2024-04-05 05:20] LABS: HEMATOCRIT 38.5 % (42-54); MEAN CORPUSCULAR HEMOGLOBIN 31.5 pg (27.0-33.0); MEAN CORPUSCULAR HGB CONC 34.5 g/dL (32.0-36.0); MEAN CORPUSCULAR VOLUME 91.2 fL (79-99); RED BLOOD CELL COUNT(AUTO) 4.22 MIL/uL (4.50-6.20); WHITE BLOOD COUNT (AUTO) 13.2 K/uL (4.8-10.8)
[2024-04-05 05:42] LABS: ALBUMIN 2.8 g/dL (3.5-5.0); BILIRUBIN,TOTAL 1.1 mg/dL (0.2-1.0); CREATININE 1.1 mg/dL (0.5-1.3); MAGNESIUM 2.2 mg/dL (1.80-2.40); POTASSIUM 4.4 mmol/L (3.5-5.1); TOTAL PROTEIN, SERUM 6.9 g/dL (6.0-8.3)
--- NOTE | 2024-04-05 13:41 | PN ---
[facility] PROGRESS NOTE Date of Service: Apr 05, 2024 Time of Service: 13:37 SUBJECTIVE: 04/04 patient is seen and examined at bedside, case discussed with the RN, no acute events overnight, patient currently NPO, getting IV antibiotics during my visit, getting good pain control with current medical management. Results of CT of the abdomen reviewed, findings of acute appendicitis with abscess. Surgical consultation and Infectious Disease consultation requested, we will follow input recommendation. 04/05 patient seen at bedside, no acute events overnight. General surgery recommending IR tube placement into era-appendiceal abscess, will follow up post procedure. Continue broad spectrum antibiotics. REVIEW OF SYSTEMS 12 point ROS negative unless noted in HPI PHYSICAL EXAM GENERAL APPEARANCE: The patient is awake, alert, and oriented, in no acute cardiopulmonary distress. NEUROLOGICAL: Cranial nerves II-XII grossly intact. Motor is 5/5 in bilateral upper and lower extremities proximal to distal. No sensory deficits. HEENT: Face is symmetric. Pupils are equal and reactive. Extraocular movements are intact. NECK: Supple. No JVD. No thyromegaly. No submental, submandibular, pre-/postauricular, occipital or supraclavicular lymphadenopathy. CHEST: Normal chest expansion. No Telemetry. LUNGS: Absence of any rales, rhonchi or any wheezing. CARDIOVASCULAR: Regular. S1 and S2 normal. No appreciable rubs, murmurs or gallops. ABDOMEN: Abdominal distention and right lower quadrant abdominal tenderness on light palpation .There is no rebound, voluntary guarding, or rigidity. : Deferred. No Krishna. EXTREMITIES: Non-edematous and not cyanotic. No clubbing. Good capillary refill. SKIN: No skin breakdown. Vital Signs (last 8hr) Date Time Temp Pulse Resp B/P (MAP) Pulse Ox O2 Delivery O2 Flow Rate FiO2 04/05/24 12:00 98.8 94 18 129/78 97 Room Air 04/05/24 08:00 99.7 101 16 119/75 95 Room Air 04/05/24 08:00 95 Room Air* 0 21 LABS: Laboratory: Test 04/05/24 03:42 04/04/24 05:24 04/03/24 21:53 04/03/24 21:52 Range/Units White Blood Count 13.2 H 4.8-10.8 K/uL Red Blood Count 4.22 L 4.50-6.20 MIL/uL Hemoglobin 13.3 L 14.0-18.0 g/dL Hematocrit 38.5 L 42-54 % Mean Corpuscular Volume 91.2 79-99 fL Mean Corpuscular Hemoglobin 31.5 27.0-33.0 pg Mean Corpuscular Hemoglobin Concent 34.5 32.0-36.0 g/dL Red Cell Distribution Width 12.0 11.0-15.5 % Platelet Count 325 130-400 K/uL Mean Platelet Volume 9.3 7.5-10.5 fL Nucleated Red Blood Cells 0.0 0.0-0.19 % Sodium Level 135 L 136-145 mmol/L Potassium Level 4.4 3.5-5.1 mmol/L Chloride Level 101 101-111 mmol/L Carbon Dioxide Level 28 21-32 mmol/L Blood Urea Nitrogen 10 7-18 mg/dL Creatinine 1.1 0.5-1.3 mg/dL Glomerular Filtration Rate Calc 82 >90 mL/min Random Glucose 99 70-105 mg/dL Total Calcium 8.5 8.5-10.1 mg/dL Magnesium Level 2.20 1.80-2.40 mg/dL Total Bilirubin 1.1 #H 0.2-1.0 mg/dL Aspartate Amino Transf (AST/SGOT) 21 10-37 U/L Alanine Aminotransferase (ALT/SGPT) 42 12-78 U/L Alkaline Phosphatase 130 50-136 U/L Total Protein 6.9 6.0-8.3 g/dL Albumin 2.8 L 3.5-5.0 g/dL Immature Granulocyte % (Auto) 0.8 0-1 % Neutrophils (%) (Auto) 76.5 40.0-77.0 % Lymphocytes (%) (Auto) 13.3 L 21.0-51.0 % Monocytes (%) (Auto) 7.7 3.0-13.0 % Eosinophils (%) (Auto) 1.5 0.0-8.0 % Basophils (%) (Auto) 0.2 0.0-5.0 % Neutrophils # (Auto) 9.7 H 1.8-7.7 K/uL Lymphocytes # (Auto) 1.7 1.0-4.8 K/uL Monocytes # (Auto) 1.0 0.1-1.0 K/uL Eosinophils # (Auto) 0.19 0.00-0.70 K/uL Basophils # (Auto) 0.03 0.00-0.20 K/uL Absolute Immature Granulocyte (auto 0.10 0-1 K/uL Erythrocyte Sedimentation Rate 70 H 0-15 MM/HR Prothrombin Time 10.6 9.6-11.6 SEC Prothromb Time International Ratio 0.94 0.85-1.15 Activated Partial Thromboplast Time 29.1 26.3-35.5 SEC Procalcitonin 0.08 0.05-0.5 ng/mL Direct Bilirubin 0.3 0.0-0.3 mg/dL Total Creatine Kinase 99 21-232 U/L Troponin I High Sensitivity < 4 L 4-75 ng/L Lipase 45 16-77 U/L Urine Color YELLOW YELLOW Urine Appearance CLEAR CLEAR Urine pH 6.0 5.0-8.0 Urine Specific [place] 1.019 1.001-1.031 Urine Protein 20 H NEGATIVE mg/dL Urine Glucose (UA) NEGATIVE NEGATIVE mg/dL Urine Ketones NEGATIVE NEGATIVE mg/dL Urine Occult Blood NEGATIVE NEGATIVE Urine Nitrate NEGATIVE NEGATIVE Urine Bilirubin NEGATIVE NEGATIVE mg/dL Urine Urobilinogen 0.2 0.2-1.0 mg/dL Urine Leukocyte Esterase NEGATIVE NEGATIVE Diony/uL Urine RBC 0-1 0-1 /HPF Urine WBC 2-5 H 0-1 /HPF Urine Bacteria None None Seen /HPF Urine Opiates Screen NEGATIVE NEGATIVE Urine Barbiturates Screen NEGATIVE NEGATIVE Urine Phencyclidine Screen NEGATIVE NEGATIVE Urine Amphetamines Screen NEGATIVE NEGATIVE Urine Benzodiazepines Screen NEGATIVE NEGATIVE Urine Cocaine Screen NEGATIVE NEGATIVE Urine Marijuana (THC) Screen NEGATIVE NEGATIVE Current Medications Medications (Trade) Dose Ordered Sig/Maynor Route PRN Reason Start Time Stop Time Status Last Admin Dose Admin Famotidine (Pepcid 20mg Vial) 20 mg BID IV 04/04/24 09:00 05/04/24 08:59 04/05/24 09:38 20 MG Magnesium Sulfate 50 ml @ 0 mls/hr PROTOCOL PRN IV OTHER [SEE ORDER COMMENTS] 04/04/24 03:30 05/04/24 03:29 Morphine Sulfate (morPHINE 2MG SYG) 2 mg Q4H PRN IV MODERATE PAIN (4-6) 04/04/24 03:30 04/11/24 03:29 04/05/24 09:49 2 MG Ondansetron HCl (zoFRAN 4MG INJ) 4 mg Q6H PRN IV NAUSEA/VOMITING 04/04/24 03:30 05/04/24 03:29 04/04/24 04:47 4 MG Piperacillin Sod/ Tazobactam Sod (Zosyn 3.375gm+NS 50ml) 3.375 gm Q8H IV 04/04/24 08:00 04/14/24 07:59 04/05/24 09:38 3.375 GM Potassium Chloride 100 ml @ 50 mls/hr AD PRN IV POTASSIUM PROTOCOL 04/04/24 03:30 05/04/24 03:29 Sodium Chloride 1,000 ml @ 100 mls/hr Q10H IV 04/04/24 03:30 05/04/24 03:29 04/04/24 08:22 100 MLS/HR DIAGNOSTICS / RADIOLOGY: [ ] ASSESSMENT: Acute appendicitis with abscess per CT POA Acute leukocytosis POA Moderate protein calorie malnutrition POA Morbid obesity POA PLAN: Remains admitted to the medical floor Continue patient nothing by mouth Continue NS @ 100 ml / hr and re evaluate Continue Zosyn IV Q 8 hours for empiric coverage Continue on Famotidine 20 mg IV bid for GI prophylaxis General surgery recommending IR placement of drain Infectious disease consultation requested, follow input recommendation We will request labs in am Further orders to follow depending on above results Disposition: Pending IR tube placement, improvement in clinical status MELISSA GLEASON MD Apr 05, 2024 13:41
[2024-04-05] MEDS ORDERED: MIDAZOLAM HCL 1 MG/ML 2ML VIAL ONE (14:53)
[2024-04-05] MEDS ORDERED: FENTanyl CITRate PF 50 MCG/1 ML 2ML VIAL ONE (14:53)
--- NOTE | 2024-04-05 15:40 | NUR ---
CT GD DRAINAGE CATHETER PLACEMENT PROCEDURE PERFORMED BY DR Washington NUNEZ. PUNCTURE SITE RUQ. PATIENT TOLERATED PROCEDURE WELL. 8FR PIGTAIL CATHETER PLACED TO RUQ ABSCESS AND CONNECTED TO ACCORDION DRAIN BAG. CATHETER SUTURED IN PLACE AND DRESSING APPLIED. SPECIMEN COLLECTED AND SENT TO LAB. END OF PROCEDURE AT 1525. REPORT GIVEN TO RAMANDEEP BRUNSON AND PATIENT TRANSPORTED TO [facility] VIA BED AT 1540. AAO X3 WITH NO C/O PAIN.
--- NOTE | 2024-04-05 15:43 | NUR ---
PATIENT ARRIVED BACK TO UNIT WITH DRAIN PLACEMENT TO LOWER QUAD. NO C/O PAIN AT THIS TIME. NO S/S OF DISTRESS NOTED
[2024-04-06] VITALS (7 sets, daily range): BP systolic 113–130; BP diastolic 67–89; PULSE 76–92; RESP 16–18; TEMP 98.2–98.9; O2SAT 97–98
[2024-04-06 05:21] LABS: BASOPHILS # (AUTO) 0.04 K/uL (0.00-0.20); BASOPHILS % (AUTO) 0.4 % (0.0-5.0); EOSINOPHILS # (AUTO) 0.13 K/uL (0.00-0.70); EOSINOPHILS % (AUTO) 1.3 % (0.0-8.0); HEMATOCRIT 38.3 % (42-54); IMMATURE GRANULOCYTE ABSOLUTE 0.03 K/uL (0-1); LYMPHOCYTES % (AUTO) 19.6 % (21.0-51.0); MEAN CORPUSCULAR HEMOGLOBIN 31.5 pg (27.0-33.0); MEAN CORPUSCULAR HGB CONC 34.5 g/dL (32.0-36.0); MEAN CORPUSCULAR VOLUME 91.4 fL (79-99); MONOCYTES # (AUTO) 0.8 K/uL (0.1-1.0); MONOCYTES % (AUTO) 7.8 % (3.0-13.0); NEUTROPHILS % (AUTO) 70.6 % (40.0-77.0); PLATELET COUNT (AUTO) 332 K/uL (130-400); RED BLOOD CELL COUNT(AUTO) 4.19 MIL/uL (4.50-6.20)
[2024-04-06 06:03] LABS: CREATININE 1.1 mg/dL (0.5-1.3); MAGNESIUM 2.4 mg/dL (1.80-2.40); PHOSPHORUS 3.7 mg/dL (2.5-4.9); POTASSIUM 3.9 mmol/L (3.5-5.1)
--- NOTE | 2024-04-06 16:18 | PN ---
This is a 48-year-old male with acute perforated appendicitis with abscess with recent percutaneous drain by IR Interval history: This 48-year-old male seen in his room IR drain in place with serosanguineous output Cultures still pending Significant improvement of abdominal discomfort WBCs trending down at 10 with a hemoglobin of 13.2 Patient is on IV fluids and IV antibiotics and tolerating diet Physical exam General: Awake alert and oriented Heart: Regular rate and rhythm} Lungs: Clear to auscultation no distress Abdomen: [Soft, nontender, nondistended Percutaneous drain in place Assessment : This is a 48-year-old male status post perforated appendicitis with abscess with recent percutaneous drain by IR Plan: From surgical standpoint patient to continue with the IV fluids and IV antibiotics Patient will follow up in outpatient setting for evaluation and delayed appendectomy once completion of antibiotics in infection has resolved Strict I's and O's of IR drain Dr. Faria to be updated in patient's status and nursing to report any further acute events. Thank you Vitals/Labs Vital Signs Date Time Temp Pulse Resp B/P (MAP) Pulse Ox O2 Delivery O2 Flow Rate FiO2 04/06/24 11:59 98.2 76 16 120/85 98 Room Air 04/06/24 08:00 0 21 Laboratory Tests 04/06/24 04:54 Medications Current Medications Sodium Chloride 1,000 ml @ 0 mls/hr ONCE ONCE IV Last administered on 04/03/24at 23:20; Start 04/03/24 at 20:30; Stop 04/03/24 at 20:31; Status DC Ketorolac Tromethamine 30 mg ONCE ONCE IVP Last administered on 04/03/24at 23:20; Start 04/03/24 at 20:30; Stop 04/03/24 at 20:31; Status DC Iohexol 75 ml STK-MED ONCE IV; Start 04/03/24 at 22:59; Stop 04/03/24 at 22:59; Status DC Piperacillin Sod/ Tazobactam Sod 3.375 gm ONCE ONCE IV Last administered on 04/04/24at 00:09; Start 04/04/24 at 00:00; Stop 04/04/24 at 00:02; Status DC Ondansetron HCl 4 mg Q6H PRN IV Last administered on 04/04/24at 04:47; Start 04/04/24 at 03:30; Stop 05/04/24 at 03:29 Morphine Sulfate 2 mg Q4H PRN IV Last administered on 04/05/24at 09:49; Start 04/04/24 at 03:30; Stop 04/11/24 at 03:29 Sodium Chloride 1,000 ml @ 100 mls/hr Q10H IV Last administered on 04/04/24at 08:22; Start 04/04/24 at 03:30; Stop 05/04/24 at 03:29 Piperacillin Sod/ Tazobactam Sod 3.375 gm Q8H IV Last administered on 04/06/24at 16:03; Start 04/04/24 at 08:00; Stop 04/14/24 at 07:59 Magnesium Sulfate 50 ml @ 0 mls/hr PROTOCOL PRN IV; Start 04/04/24 at 03:30; Stop 05/04/24 at 03:29 Potassium Chloride 100 ml @ 50 mls/hr AD PRN IV; Start 04/04/24 at 03:30; Stop 05/04/24 at 03:29 Famotidine 20 mg BID IV Last administered on 04/06/24at 08:36; Start 04/04/24 at 09:00; Stop 05/04/24 at 08:59 Fentanyl Citrate 100 mcg STK-MED ONCE .ROUTE; Start 04/05/24 at 14:53; Stop 04/05/24 at 14:53; Status DC Midazolam HCl 2 mg STK-MED ONCE .ROUTE; Start 04/05/24 at 14:53; Stop 04/05/24 at 14:53; Status DC NAVJOT SAMS Jr. Apr 06, 2024 16:18
--- NOTE | 2024-04-06 18:45 | PN ---
[facility] PROGRESS NOTE Date of Service: Apr 06, 2024 Time of Service: 18:43 SUBJECTIVE: 04/04 patient is seen and examined at bedside, case discussed with the RN, no acute events overnight, patient currently NPO, getting IV antibiotics during my visit, getting good pain control with current medical management. Results of CT of the abdomen reviewed, findings of acute appendicitis with abscess. Surgical consultation and Infectious Disease consultation requested, we will follow input recommendation. 04/05 patient seen at bedside, no acute events overnight. General surgery recommending IR tube placement into era-appendiceal abscess, will follow up post procedure. Continue broad spectrum antibiotics. 04/06 patient seen at bedside, no acute events overnight. IR drain placed early this morning, 50 cc of purulent material drained, we will continue with IV antibiotics and follow up with General surgery recommendations. We will follow up with cultures of drained fluid and adjust antibiotics accordingly. REVIEW OF SYSTEMS 12 point ROS negative unless noted in HPI PHYSICAL EXAM GENERAL APPEARANCE: The patient is awake, alert, and oriented, in no acute cardiopulmonary distress. NEUROLOGICAL: Cranial nerves II-XII grossly intact. Motor is 5/5 in bilateral upper and lower extremities proximal to distal. No sensory deficits. HEENT: Face is symmetric. Pupils are equal and reactive. Extraocular movements are intact. NECK: Supple. No JVD. No thyromegaly. No submental, submandibular, pre- /postauricular, occipital or supraclavicular lymphadenopathy. CHEST: Normal chest expansion. No Telemetry. LUNGS: Absence of any rales, rhonchi or any wheezing. CARDIOVASCULAR: Regular. S1 and S2 normal. No appreciable rubs, murmurs or gallops. ABDOMEN: Abdominal distention and right lower quadrant abdominal tenderness on light palpation .There is no rebound, voluntary guarding, or rigidity. : Deferred. No Krishna. EXTREMITIES: Non-edematous and not cyanotic. No clubbing. Good capillary ref ill. SKIN: No skin breakdown. Vital Signs (last 8hr) Date Time Temp Pulse Resp B/P (MAP) Pulse Ox O2 Delivery O2 Flow Rate FiO2 04/06/24 16:00 98.4 89 16 124/78 97 Room Air 04/06/24 11:59 98.2 76 16 120/85 98 Room Air LABS: Laboratory: Test 04/06/24 04:54 04/05/24 03:42 Range/Units White Blood Count 10.0 4.8-10.8 K/uL Red Blood Count 4.19 L 4.50-6.20 MIL/uL Hemoglobin 13.2 L 14.0-18.0 g/dL Hematocrit 38.3 L 42-54 % Mean Corpuscular Volume 91.4 79-99 fL Mean Corpuscular Hemoglobin 31.5 27.0-33.0 pg Mean Corpuscular Hemoglobin Concent 34.5 32.0-36.0 g/dL Red Cell Distribution Width 12.0 11.0-15.5 % Platelet Count 332 130-400 K/uL Mean Platelet Volume 9.1 7.5-10.5 fL Immature Granulocyte % (Auto) 0.3 0-1 % Neutrophils (%) (Auto) 70.6 40.0-77.0 % Lymphocytes (%) (Auto) 19.6 L 21.0-51.0 % Monocytes (%) (Auto) 7.8 3.0-13.0 % Eosinophils (%) (Auto) 1.3 0.0-8.0 % Basophils (%) (Auto) 0.4 0.0-5.0 % Neutrophils # (Auto) 7.0 1.8-7.7 K/uL Lymphocytes # (Auto) 2.0 1.0-4.8 K/uL Monocytes # (Auto) 0.8 0.1-1.0 K/uL Eosinophils # (Auto) 0.13 0.00-0.70 K/uL Basophils # (Auto) 0.04 0.00-0.20 K/uL Absolute Immature Granulocyte (auto 0.03 0-1 K/uL Nucleated Red Blood Cells 0.0 0.0-0.19 % Sodium Level 137 136-145 mmol/L Potassium Level 3.9 3.5-5.1 mmol/L Chloride Level 101 101-111 mmol/L Carbon Dioxide Level 29 21-32 mmol/L Blood Urea Nitrogen 9 7-18 mg/dL Creatinine 1.1 0.5-1.3 mg/dL Glomerular Filtration Rate Calc 82 >90 mL/min Random Glucose 101 70-105 mg/dL Total Calcium 8.6 8.5-10.1 mg/dL Phosphorus Level 3.7 2.5-4.9 mg/dL Magnesium Level 2.40 1.80-2.40 mg/dL Total Bilirubin 1.1 #H 0.2-1.0 mg/dL Aspartate Amino Transf (AST/SGOT) 21 10-37 U/L Alanine Aminotransferase (ALT/SGPT) 42 12-78 U/L Alkaline Phosphatase 130 50-136 U/L Total Protein 6.9 6.0-8.3 g/dL Albumin 2.8 L 3.5-5.0 g/dL Current Medications Medications (Trade) Dose Ordered Sig/Maynor Route PRN Reason Start Time Stop Time Status Last Admin Dose Admin Famotidine (Pepcid 20mg Vial) 20 mg BID IV 04/04/24 09:00 05/04/24 08:59 04/06/24 08:36 20 MG Magnesium Sulfate 50 ml @ 0 mls/hr PROTOCOL PRN IV OTHER [SEE ORDER COMMENTS] 04/04/24 03:30 05/04/24 03:29 Morphine Sulfate (morPHINE 2MG SYG) 2 mg Q4H PRN IV MODERATE PAIN (4-6) 04/04/24 03:30 04/11/24 03:29 04/05/24 09:49 2 MG Ondansetron HCl (zoFRAN 4MG INJ) 4 mg Q6H PRN IV NAUSEA/VOMITING 04/04/24 03:30 05/04/24 03:29 04/04/24 04:47 4 MG Piperacillin Sod/ Tazobactam Sod (Zosyn 3.375gm+NS 50ml) 3.375 gm Q8H IV 04/04/24 08:00 04/14/24 07:59 04/06/24 16:03 3.375 GM Potassium Chloride 100 ml @ 50 mls/hr AD PRN IV POTASSIUM PROTOCOL 04/04/24 03:30 05/04/24 03:29 Sodium Chloride 1,000 ml @ 100 mls/hr Q10H IV 04/04/24 03:30 05/04/24 03:29 04/04/24 08:22 100 MLS/HR DIAGNOSTICS / RADIOLOGY: [ ] ASSESSMENT: Acute appendicitis with abscess per CT POA Acute leukocytosis POA Moderate protein calorie malnutrition POA Morbid obesity POA PLAN: Remains admitted to the medical floor Regular diet Continue NS @ 100 ml / hr and re evaluate Continue Zosyn IV Q 8 hours for empiric coverage Continue on Famotidine 20 mg IV bid for GI prophylaxis General surgery consulted appreciate recommendations Infectious disease consultation requested, follow input recommendation We will request labs in am Further orders to follow depending on above results Disposition: Pending cultures and General surgery recommendations MELISSA GLEASON MD Apr 06, 2024 18:45
[2024-04-07] VITALS (8 sets, daily range): BP systolic 114–141; BP diastolic 70–89; PULSE 70–82; RESP 16–21; TEMP 98.3–98.9; O2SAT 99–100
[2024-04-07 05:09] LABS: BASOPHILS # (AUTO) 0.03 K/uL (0.00-0.20); BASOPHILS % (AUTO) 0.4 % (0.0-5.0); EOSINOPHILS # (AUTO) 0.16 K/uL (0.00-0.70); EOSINOPHILS % (AUTO) 2.2 % (0.0-8.0); HEMATOCRIT 40.5 % (42-54); IMMATURE GRANULOCYTE ABSOLUTE 0.05 K/uL (0-1); LYMPHOCYTES # (AUTO) 1.9 K/uL (1.0-4.8); LYMPHOCYTES % (AUTO) 25.1 % (21.0-51.0); MEAN CORPUSCULAR HEMOGLOBIN 31.2 pg (27.0-33.0); MEAN CORPUSCULAR HGB CONC 33.1 g/dL (32.0-36.0); MEAN CORPUSCULAR VOLUME 94.2 fL (79-99); MONOCYTES # (AUTO) 0.6 K/uL (0.1-1.0); MONOCYTES % (AUTO) 8.5 % (3.0-13.0); NEUTROPHILS # (AUTO) 4.7 K/uL (1.8-7.7); NEUTROPHILS % (AUTO) 63.1 % (40.0-77.0); PLATELET COUNT (AUTO) 387 K/uL (130-400); RED CELL DISTRIBUTION WIDTH 11.9 % (11.0-15.5); WHITE BLOOD COUNT (AUTO) 7.4 K/uL (4.8-10.8)
[2024-04-07 05:21] LABS: POTASSIUM 4.1 mmol/L (3.5-5.1)
--- NOTE | 2024-04-07 13:40 | PN ---
[facility] PROGRESS NOTE Date of Service: Apr 07, 2024 Time of Service: 13:36 SUBJECTIVE: 04/04 patient is seen and examined at bedside, case discussed with the RN, no acute events overnight, patient currently NPO, getting IV antibiotics during my visit, getting good pain control with current medical management. Results of CT of the abdomen reviewed, findings of acute appendicitis with abscess. Surgical consultation and Infectious Disease consultation requested, we will follow input recommendation. 04/05 patient seen at bedside, no acute events overnight. General surgery recommending IR tube placement into era-appendiceal abscess, will follow up post procedure. Continue broad spectrum antibiotics. 04/06 patient seen at bedside, no acute events overnight. IR drain placed early this morning, 50 cc of purulent material drained, we will continue with IV antibiotics and follow up with General surgery recommendations. We will follow up with cultures of drained fluid and adjust antibiotics accordingly. 04/07 patient seen at bedside, no acute events overnight. Drain still in place proximally 20 cc of drainage, at bedside the fluid has cleared up to serosanguineous. Initial abscess culture growing polymicrobial organism consistent with ruptured appendicitis which includes Gram-negative rods, g positive cocci and Gram-positive rods. We will continue with broad-spectrum antibiotics and wait for sensitivities. Further care per General surgery recommendations, we will need to determine if patient will be discharged with drain in place or if it will be removed prior to discharge. REVIEW OF SYSTEMS 12 point ROS negative unless noted in HPI PHYSICAL EXAM GENERAL APPEARANCE: The patient is awake, alert, and oriented, in no acute cardiopulmonary distress. NEUROLOGICAL: Cranial nerves II-XII grossly intact. Motor is 5/5 in bilateral upper and lower extremities proximal to distal. No sensory deficits. HEENT: Face is symmetric. Pupils are equal and reactive. Extraocular movements are intact. NECK: Supple. No JVD. No thyromegaly. No submental, submandibular, pre-/postauricular, occipital or supraclavicular lymphadenopathy. CHEST: Normal chest expansion. No Telemetry. LUNGS: Absence of any rales, rhonchi or any wheezing. CARDIOVASCULAR: Regular. S1 and S2 normal. No appreciable rubs, murmurs or gallops. ABDOMEN: Abdominal distention and right lower quadrant abdominal tenderness on light palpation .There is no rebound, voluntary guarding, or rigidity. : Deferred. No Krishna. EXTREMITIES: Non-edematous and not cyanotic. No clubbing. Good capillary refill. SKIN: No skin breakdown. Vital Signs (last 8hr) Date Time Temp Pulse Resp B/P (MAP) Pulse Ox O2 Delivery O2 Flow Rate FiO2 04/07/24 11:05 98.4 76 20 141/78 100 Room Air 04/07/24 08:01 98.2 76 20 126/89 100 Room Air 04/07/24 08:00 100 Room Air* 0 21 LABS: Laboratory: Test 04/07/24 04:36 04/06/24 04:54 Range/Units White Blood Count 7.4 # 4.8-10.8 K/uL Red Blood Count 4.30 L 4.50-6.20 MIL/uL Hemoglobin 13.4 L 14.0-18.0 g/dL Hematocrit 40.5 L 42-54 % Mean Corpuscular Volume 94.2 79-99 fL Mean Corpuscular Hemoglobin 31.2 27.0-33.0 pg Mean Corpuscular Hemoglobin Concent 33.1 32.0-36.0 g/dL Red Cell Distribution Width 11.9 11.0-15.5 % Platelet Count 387 130-400 K/uL Mean Platelet Volume 9.2 7.5-10.5 fL Immature Granulocyte % (Auto) 0.7 0-1 % Neutrophils (%) (Auto) 63.1 40.0-77.0 % Lymphocytes (%) (Auto) 25.1 21.0-51.0 % Monocytes (%) (Auto) 8.5 3.0-13.0 % Eosinophils (%) (Auto) 2.2 0.0-8.0 % Basophils (%) (Auto) 0.4 0.0-5.0 % Neutrophils # (Auto) 4.7 1.8-7.7 K/uL Lymphocytes # (Auto) 1.9 1.0-4.8 K/uL Monocytes # (Auto) 0.6 0.1-1.0 K/uL Eosinophils # (Auto) 0.16 0.00-0.70 K/uL Basophils # (Auto) 0.03 0.00-0.20 K/uL Absolute Immature Granulocyte (auto 0.05 0-1 K/uL Nucleated Red Blood Cells 0.0 0.0-0.19 % Sodium Level 141 136-145 mmol/L Potassium Level 4.1 3.5-5.1 mmol/L Chloride Level 106 101-111 mmol/L Carbon Dioxide Level 28 21-32 mmol/L Blood Urea Nitrogen 15 7-18 mg/dL Creatinine 1.0 0.5-1.3 mg/dL Glomerular Filtration Rate Calc 92 >90 mL/min Random Glucose 111 H 70-105 mg/dL Total Calcium 8.4 L 8.5-10.1 mg/dL Phosphorus Level 3.7 2.5-4.9 mg/dL Magnesium Level 2.40 1.80-2.40 mg/dL Current Medications Medications (Trade) Dose Ordered Sig/Maynor Route PRN Reason Start Time Stop Time Status Last Admin Dose Admin Famotidine (Pepcid 20mg Vial) 20 mg BID IV 04/04/24 09:00 05/04/24 08:59 04/07/24 11:20 20 MG Magnesium Sulfate 50 ml @ 0 mls/hr PROTOCOL PRN IV OTHER [SEE ORDER COMMENTS] 04/04/24 03:30 05/04/24 03:29 Morphine Sulfate (morPHINE 2MG SYG) 2 mg Q4H PRN IV MODERATE PAIN (4-6) 04/04/24 03:30 04/11/24 03:29 04/05/24 09:49 2 MG Ondansetron HCl (zoFRAN 4MG INJ) 4 mg Q6H PRN IV NAUSEA/VOMITING 04/04/24 03:30 05/04/24 03:29 04/04/24 04:47 4 MG Piperacillin Sod/ Tazobactam Sod (Zosyn 3.375gm+NS 50ml) 3.375 gm Q8H IV 04/04/24 08:00 04/14/24 07:59 04/07/24 11:19 3.375 GM Potassium Chloride 100 ml @ 50 mls/hr AD PRN IV POTASSIUM PROTOCOL 04/04/24 03:30 05/04/24 03:29 Sodium Chloride 1,000 ml @ 100 mls/hr Q10H IV 04/04/24 03:30 05/04/24 03:29 04/06/24 20:27 100 MLS/HR DIAGNOSTICS / RADIOLOGY: [ ] ASSESSMENT: Acute appendicitis with abscess per CT status post IR drain placement (04/06/24) POA Polymicrobial intraabdominal abscess Acute leukocytosis POA Moderate protein calorie malnutrition POA Morbid obesity POA PLAN: Remains admitted to the medical floor Regular diet Continue Zosyn IV Q 8 hours for empiric coverage Continue on Famotidine 20 mg IV bid for GI prophylaxis General surgery consulted appreciate recommendations We will request labs in am Further orders to follow depending on above results Disposition: Pending cultures and General surgery recommendations MELISSA GLEASON MD Apr 07, 2024 13:40
--- NOTE | 2024-04-07 15:48 | PN ---
This 48-year-old male seen in his room resting Patient is still with about 20 cc of output from percutaneous drain which is serosanguineous today Patient continues with IV fluids and IV antibiotics WBCs 7.4 with a hemoglobin of 13.4 Vitals stable Pain controlled Patient tolerating diet GENERAL APPEARANCE: The patient is awake, alert, and oriented, in no acute cardiopulmonary distress. NEUROLOGICAL: Cranial nerves II-XII grossly intact. Motor is 5/5 in bilateral upper and lower extremities proximal to distal. No sensory deficits. HEENT: Face is symmetric. Pupils are equal and reactive. Extraocular movements are intact. NECK: Supple. No JVD. No thyromegaly. No submental, submandibular, pre- /postauricular, occipital or supraclavicular lymphadenopathy. CHEST: Normal chest expansion. No Telemetry. LUNGS: Absence of any rales, rhonchi or any wheezing. CARDIOVASCULAR: Regular. S1 and S2 normal. No appreciable rubs, murmurs or gallops. ABDOMEN: Abdominal distention and right lower quadrant abdominal tenderness on light palpation .There is no rebound, voluntary guarding, or rigidity. : Deferred. No Krishna. EXTREMITIES: Non-edematous and not cyanotic. No clubbing. Good capillary refill. SKIN: No skin breakdown. Assessment : This is a 48-year-old male status post perforated appendicitis with abscess with recent percutaneous drain by IR Plan: From surgical standpoint patient to continue with the IV fluids and IV antibiotics Patient will follow up in outpatient setting for evaluation and delayed appendectomy once completion of antibiotics in infection has resolved Strict I's and O's of IR drain Dr. Faria to be updated in patient's status and nursing to report any further acute events. Thank you Vitals/Labs Vital Signs Date Time Temp Pulse Resp B/P (MAP) Pulse Ox O2 Delivery O2 Flow Rate FiO2 04/07/24 11:05 98.4 76 20 141/78 100 Room Air 04/07/24 08:00 0 21 Laboratory Tests 04/07/24 04:36 Medications Current Medications Sodium Chloride 1,000 ml @ 0 mls/hr ONCE ONCE IV Last administered on 04/03/24at 23:20; Start 04/03/24 at 20:30; Stop 04/03/24 at 20:31; Status DC Ketorolac Tromethamine 30 mg ONCE ONCE IVP Last administered on 04/03/24at 23:20; Start 04/03/24 at 20:30; Stop 04/03/24 at 20:31; Status DC Iohexol 75 ml STK-MED ONCE IV; Start 04/03/24 at 22:59; Stop 04/03/24 at 22:59; Status DC Piperacillin Sod/ Tazobactam Sod 3.375 gm ONCE ONCE IV Last administered on 04/04/24at 00:09; Start 04/04/24 at 00:00; Stop 04/04/24 at 00:02; Status DC Ondansetron HCl 4 mg Q6H PRN IV Last administered on 04/04/24at 04:47; Start 04/04/24 at 03:30; Stop 05/04/24 at 03:29 Morphine Sulfate 2 mg Q4H PRN IV Last administered on 04/05/24at 09:49; Start 04/04/24 at 03:30; Stop 04/11/24 at 03:29 Sodium Chloride 1,000 ml @ 100 mls/hr Q10H IV Last administered on 04/06/24at 20:27; Start 04/04/24 at 03:30; Stop 04/07/24 at 13:40; Status DC Piperacillin Sod/ Tazobactam Sod 3.375 gm Q8H IV Last administered on 04/07/24at 11:19; Start 04/04/24 at 08:00; Stop 04/14/24 at 07:59 Magnesium Sulfate 50 ml @ 0 mls/hr PROTOCOL PRN IV; Start 04/04/24 at 03:30; Stop 05/04/24 at 03:29 Potassium Chloride 100 ml @ 50 mls/hr AD PRN IV; Start 04/04/24 at 03:30; Stop 05/04/24 at 03:29 Famotidine 20 mg BID IV Last administered on 04/07/24at 11:20; Start 04/04/24 at 09:00; Stop 05/04/24 at 08:59 Fentanyl Citrate 100 mcg STK-MED ONCE .ROUTE; Start 04/05/24 at 14:53; Stop 04/05/24 at 14:53; Status DC Midazolam HCl 2 mg STK-MED ONCE .ROUTE; Start 04/05/24 at 14:53; Stop 2/17/25 at 14:53; Status DC NAVJOT SAMS Jr. Apr 07, 2024 15:48
--- NOTE | 2024-04-07 19:44 | HMCIMG ---
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 Key PROCEDURE DETAILS: Informed consent was obtained after discussion of the risks, benefits and alternatives to this treatment. Sterile Prep: All elements of maximal sterile barrier technique, including hand hygiene and cutaneous antisepsis were used. A time-out was performed prior to the procedure. Anesthesia type: Local anesthetic moderate sedation Estimated blood loss: Less than 5 cc. TECHNIQUE: Imaging guidance for intervention: Fluoroscopy and CT with permanent image storage Intraprocedural or immediate post-procedural complications: None The area was prepped and draped in sterile fashion. 1% lidocaine was used for anesthesia. Initial imaging was performed to assess an appropriate entry site. Using imaging guidance, the needle was advanced into the collection with return of fluid. A J-wire was placed and the skin tract was dilated. Next, a 8 Bur[place]ian drainage catheter was advanced over the wire and formed in the collection. Specimen was obtained. The catheter was connected to suction bag. Sterile dressing applied. No immediate complication. Patient tolerated procedure well. FINDINGS: CT demonstrated abscess in the right lower quadrant.. Completion imaging demonstrated adequate position of drainage catheter formed in the collection. IMPRESSION: Uneventful placement of 8 Burundian drainage catheter in the right lower quadrant abscess using CT and fluoroscopy guidance. Specimen sent for analysis. The catheter should be flushed with 10 cc of normal saline every shift
[2024-04-08 03:16] VITALS: BP 140/73; PULSE 75; RESP 20; TEMP 98.7
[2024-04-08 03:41] LABS: BASOPHILS # (AUTO) 0.05 K/uL (0.00-0.20); BASOPHILS % (AUTO) 0.6 % (0.0-5.0); EOSINOPHILS # (AUTO) 0.21 K/uL (0.00-0.70); EOSINOPHILS % (AUTO) 2.6 % (0.0-8.0); IMMATURE GRANULOCYTE ABSOLUTE 0.05 K/uL (0-1); LYMPHOCYTES # (AUTO) 2.6 K/uL (1.0-4.8); MEAN CORPUSCULAR HGB CONC 32.6 g/dL (32.0-36.0); MEAN CORPUSCULAR VOLUME 95.1 fL (79-99); MONOCYTES # (AUTO) 0.6 K/uL (0.1-1.0); NEUTROPHILS # (AUTO) 4.6 K/uL (1.8-7.7); NEUTROPHILS % (AUTO) 57.2 % (40.0-77.0); PLATELET COUNT (AUTO) 416 K/uL (130-400); RED BLOOD CELL COUNT(AUTO) 4.52 MIL/uL (4.50-6.20); RED CELL DISTRIBUTION WIDTH 11.9 % (11.0-15.5)
[2024-04-08 03:55] LABS: CREATININE 1.2 mg/dL (0.5-1.3); POTASSIUM 4.1 mmol/L (3.5-5.1)
[2024-04-08 07:54] VITALS: BP 135/90; PULSE 75; RESP 20; TEMP 97.6
[2024-04-08 08:00] VITALS: O2SAT 99
[2024-04-08 11:47] VITALS: BP 132/86; PULSE 76; RESP 16; TEMP 97.9
[2024-04-08] MEDS ORDERED: CIPR500T10 PO (13:16)
[2024-04-08] MEDS ORDERED: METR-172 PO (13:16)
--- NOTE | 2024-04-08 17:27 | NUR ---
discharged gave patient printed discharge paperwork, educated patient regarding diet, activity, medications, follow up visits, demonstration on drain management, signs and symptoms to report to provider/return to ER. answered pt questions, patient understood.
--- NOTE | 2024-04-08 17:31 | DS ---
Discharge Summary Hospital Course Summary: 48-year-old male denies any medical and surgical history who presents to the ED complaints of on and off nonradiating right lower quadrant pain which started one week ago. Patient states he also noticed having abdominal distention the pain intensity has been increasing and getting worse today so he decided to come to the ED for evaluation. Patient reports normal bowel movement today. Seen and examined patient in the ER awake alert and oriented, appears uncomfortable complaining of abdominal pain 8/10 pain level. Patient denies fever, chills, nausea, vomiting and diarrhea. CT abdomen and pelvis with contrast result revealed there is right lower abdominal mesenteric fat stranding. There is complex cystic structure measuring 4.1 cm in the right lower abdomen. Appendix dilated measuring 12 mm. Patient was admitted, started on empiric antibiotics and general surgery was consulted. General surgery recommended IR placement of a drain. The drain was successfully placed and the aspirate was sent for culture which grew polymicrobial organisms. By hospital day 5 he was cleared by general surgery who recommends he be discharged with drain in place, to continue antibiotic therapy, and to follow up outpatient to determine whether elective appendectomy will be necessary. . 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 Key PROCEDURE DETAILS: Informed consent was obtained after discussion of the risks, benefits and alternatives to this treatment. Sterile Prep: All elements of maximal sterile barrier technique, including hand hygiene and cutaneous antisepsis were used. A time-out was performed prior to the procedure. Anesthesia type: Local anesthetic moderate sedation Estimated blood loss: Less than 5 cc. TECHNIQUE: Imaging guidance for intervention: Fluoroscopy and CT with permanent image storage Intraprocedural or immediate post-procedural complications: None The area was prepped and draped in sterile fashion. 1% lidocaine was used for anesthesia. Initial imaging was performed to assess an appropriate entry site. Using imaging guidance, the needle was advanced into the collection with return of fluid. A J-wire was placed and the skin tract was dilated. Next, a 8 Arabic drainage catheter was advanced over the wire and formed in the collection. Specimen was obtained. The catheter was connected to suction bag. Sterile dressing applied. No immediate complication. Patient tolerated procedure well. FINDINGS: CT demonstrated abscess in the right lower quadrant.. Completion imaging demonstrated adequate position of drainage catheter formed in the collection. IMPRESSION: Uneventful placement of 8 Arabic drainage catheter in the right lower quadrant abscess using CT and fluoroscopy guidance. Specimen sent for analysis. The catheter should be flushed with 10 cc of normal saline every shift CT GUIDE EMILIO PERC W/CATH IR, CT GUIDE NDL PLCMT IR INDICATION: perforated appendicitis with 4.1 cm abscess KEY WORKER: Dr. Key PROCEDURE DETAILS: Informed consent was obtained after discussion of the risks, benefits and alternatives to this treatment. Sterile Prep: All elements of maximal sterile barrier technique, including hand hygiene and cutaneous antisepsis were used. A time-out was performed prior to the procedure. Anesthesia type: Local anesthetic moderate sedation Estimated blood loss: Less than 5 cc. TECHNIQUE: Imaging guidance for intervention: Fluoroscopy and CT with permanent image storage Intraprocedural or immediate post-procedural complications: None The area was prepped and draped in sterile fashion. 1% lidocaine was used for anesthesia. Initial imaging was performed to assess an appropriate entry site. Using imaging guidance, the needle was advanced into the collection with return of fluid. A J-wire was placed and the skin tract was dilated. Next, a 8 Arabic drainage catheter was advanced over the wire and formed in the collection. Specimen was obtained. The catheter was connected to suction bag. Sterile dressing applied. No immediate complication. Patient tolerated procedure well. FINDINGS: CT demonstrated abscess in the right lower quadrant.. Completion imaging demonstrated adequate position of drainage catheter formed in the collection. IMPRESSION: Uneventful placement of 8 Arabic drainage catheter in the right lower quadrant abscess using CT and fluoroscopy guidance. Specimen sent for analysis. The catheter should be flushed with 10 cc of normal saline every shift CT ABDOMEN/PELVIS W/CONTRAST HISTORY: Right abdominal pain COMPARISON: None TECHNIQUE: Multiple sequential axial images of the abdomen and pelvis were obtained from the dome of the diaphragm through symphysis pubis. Patient was not given contrast through intravenous route. Oral contrast was not given. FINDINGS: No pleural effusion is seen bilaterally. There is no evidence of parenchymal disease or pulmonary nodule of the visualized lower lungs. Degenerative changes of the thoracolumbar spine are present. The heart is not enlarged. The liver is borderline enlarged measuring 16 cm. There is right posterior renal cyst measuring 4.4 cm. The liver, spleen, adrenal glands and pancreas are unremarkable. There is no evidence of hydronephrosis bilaterally. No evidence of renal stone is seen. Fecal material is seen in the colon. There are normal size retroperitoneal and mesenteric lymph nodes. No ascites is seen. There is right lower abdominal mesenteric fat stranding. There is complex cystic structure measuring 4.1 cm in the right lower abdomen. Findings may be related to acute appendicitis with abscess. Appendix is dilated measuring 12 mm. Pelvic sidewalls are symmetric bilaterally. Bladder is moderately distended without wall thickening. IMPRESSION: 1. There is right lower abdominal mesenteric fat stranding. There is complex cystic structure measuring 4.1 cm in the right lower abdomen. Findings may be related to acute appendicitis with abscess. Appendix is dilated measuring 12 mm. Assessment/Plan: Acute appendicitis with abscess per CT status post IR drain placement (04/06/24) POA Polymicrobial intraabdominal abscess Acute leukocytosis POA Moderate protein calorie malnutrition POA Morbid obesity POA Discharge Instructions: Follow up with PCP in 3-7 days Follow up with general surgery in 1-2 weeks Home Medications: Active Scripts Metronidazole (Metronidazole) 500 Mg Tablet, 1 TAB PO BID for 10 Days, #20 TAB 0 Refills Prov:MELISSA GLEASON MD 04/08/24 Ciprofloxacin HCl (Ciprofloxacin HCl) 500 Mg Tablet, 1 TAB PO BID for 10 Days, #20 TAB 0 Refills Prov:MELISSA GLEASON MD 04/08/24 New Medications: Ciprofloxacin HCl (Ciprofloxacin HCl) 500 Mg Tablet 1 TAB PO BID for 10 Days, #20 TAB 0 Refills Metronidazole (Metronidazole) 500 Mg Tablet 1 TAB PO BID for 10 Days, #20 TAB 0 Refills Time spent arranging discharge: 31-60 minutes MELISSA GLEASON MD Apr 08, 2024 17:31
== END 2024-04-08 19:00 | disposition home or self-care (01) | DRG 372 ==
LOC: EDH 20:05 → EDHIP 20:06 → 4AH 04-04 04:23
PROVIDERS: ADMIT Internal Medicine; ATTEND Internal Medicine
PROC: 0W9G30Z Drainage of Peritoneal Cavity with Drainage Device, Percutaneous Approach (ICD-10-PCS; principal; 2024-04-05)
DX: K35.33 Acute appendicitis with perforation, localized peritonitis, and gangrene, with abscess (principal); E44.0 Moderate protein-calorie malnutrition; E66.01 Morbid (severe) obesity due to excess calories; Z83.3 Family history of diabetes mellitus; Z68.38 Body mass index [BMI] 38.0-38.9, adult
CPT/HCPCS: 36415; 74177; 75989; 77012; 80048; 80053; 80076; 80305; 81001; 82550; 83690; 83735; 84100; 84145; 84484; 85025; 85027; 85610; 85651; 85730; 87071; 87086; 87186; 87205; 93005; 96374; 99152; 99153; 99285; G0378; J1885; J2250; J2270; J2405; J2543; J3010; J3490; J7030; Q9967; A4215; C1769; G0500

== ENCOUNTER → 2024-04-29 | Outpatient (CLI) | payer OTHER ==
[~2024-04-29] MED LIST: CIPR500T10 PO; IOHEXOL 350 MG/ML 100ML INFUS..BTL IV ONE; METR-172 PO
--- NOTE | 2024-04-29 10:55 | HMCIMG ---
Exam Type: CT ABDOMEN/PELVIS W/CONTRAST Clinical Information: ACUTE APPENDICITIS WITH PERF, EVAL DRAIN FOR REMOVAL? Comparison: None Contrast: 100 cc's Isovue 370 IV, no complications or adverse reactions CT Dose Index (CTDI): 31.60 mGy Dose Length Product (DLP): 1740.80 total mGy-cm Findings: No evidence of nephro or ureterolithiasis is found. No hydronephrosis or ureteral dilatation is seen. The lung bases are clear. The stomach is unremarkable. It shows no wall thickening. No gross ulceration is seen. It is not overly distended. There are no surrounding inflammatory changes. No wall lesions are identified to suggest cancer. The spleen is unremarkable. It is not enlarged. The pancreas shows normal anatomy. It is not fatty replaced. It shows no lesions. The pancreatic duct is not dilated. The gallbladder is unremarkable. It shows no cholelithiasis. The gallbladder wall is normal in thickness. There is no pericholecystic fluid. The is no acute or chronic inflammation noted. The adrenal glands are unremarkable. There is no enlargement. No lesions are noted. The liver is unremarkable. It shows no focal masses. The appendix shows some residual inflammatory changes and there is a periappendiceal drain in place with basically no residual fluid. The small bowel is unremarkable. There is no evidence of dilatation to suggest obstruction. No evidence of adynamic ileus is seen. There is no small bowel wall thickening to suggest enteritis. The colon is unremarkable. The urinary bladder is unremarkable. There is no wall thickening to suggest tumor or inflammation. There are no intraluminal calculi. There are no diverticula. There is no evidence of chronic bladder outlet obstruction. There is no evidence of urinary bladder distention to suggest urinary retention. The other pelvic structures are unremarkable. The bony and vascular structures are unremarkable for the patient's age. IMPRESSION: The appendix shows some residual inflammatory changes and there is a periappendiceal drain in place with basically no residual fluid. This study was performed using dose reduction techniques to include automated exposure control and/or adjustment of the mA and/or kV according to patient size.
== END | disposition home or self-care (01) ==
LOC: RAH 09:31
PROVIDERS: ATTEND Surgery
DX: K35.32 Acute appendicitis with perforation, localized peritonitis, and gangrene, without abscess (principal)
CPT/HCPCS: 74177; Q9967